=== PATIENT | male | born 1960 | race African-American/Black ===

== ENCOUNTER 2023-03-25 19:55 | Inpatient (IN) | payer OTHER ==
[~2023-03-25] VITALS: Ht 185.4 cm; Wt 99.5 kg
[2023-03-25 20:34] LABS: Hematocrit 36.7 % (41.0-53.0); White Blood Cell 4.3 10^3/uL (4.4-10.8)
[2023-03-25 20:35] VITALS: PULSE 63; RESP 24; O2SAT 98
[2023-03-25 20:37] LABS: Hemoglobin 12.5 g/dL (13.5-17.5); Mean Corpuscular Hemoglobin 34.2 pg (28.0-32.0); Mean Corpuscular Volume 100.5 fL (80.0-100.0); Red Blood Cells 3.65 10^6/uL (4.5-5.90); Red Cell Distribution Width 14.3 % (11.8-14.3)
[2023-03-25] MEDS: IPRATROPIUM BROM 0.5 MG/2.5ML INH SOL NEB ONE (20:41)
[2023-03-25] MEDS: ALBUTEROL SULF 2.5 MG/0.5ML(0.5%) NEB SOLN NEB ONE (20:41)
[2023-03-25] MEDS: methylPREDNISolone SOD SUCC 125 MG/2 ML VL IV ONE (20:42)
[2023-03-25 20:55] LABS: Band Neutrophils % (manual) 0; Basophils % (manual) 0 (0.0-2.0); Blast Cells 0; Metamyelocytes % 0; Myelocytes % 0; Promyelocytes % 0; Reactive Lymphocytes 0
[2023-03-25 21:00] LABS: Chloride 96 mmol/L (98-107); Sodium 135 mmol/L (136-145)
[2023-03-25 21:01] LABS: Anion Gap 7 (5-15); Carbon Dioxide 32 mmol/L (20-30)
[2023-03-25 21:02] LABS: Calcium 9.4 mg/dL (8.5-10.1)
[2023-03-25 21:06] LABS: Glucose 116 mg/dL (74-106)
[2023-03-25 21:07] LABS: BUN/Creatinine Ratio 3.4 (10.0-20.0); Blood Urea Nitrogen 26 mg/dL (9-23)
[2023-03-25 21:14] LABS: Eosinophils % (manual) 17 (0-7); Lymphocytes % (manual) 26 (10.0-50.0); Monocytes % (manual) 7 (0-12)
[2023-03-25 21:15] LABS: Anisocytosis Slight; Macrocytosis Slight; Platelet Estimate Adequate
[2023-03-25] MEDS: AZITHROMYCIN 250 MG TAB PO ONE (21:45)
[2023-03-25] MEDS: cefTRIAXone 1GM/50ML D5W 50 ML IV ONE (21:45)
[2023-03-25] MEDS: ASPirin 325 MG TAB PO ONE (21:45)
[2023-03-25] MEDS ORDERED: NITROGLYCERIN 0.4 MG SL TAB SL PRN (23:15)
[2023-03-25] MEDS ORDERED: ACETAMINOPHEN 325 MG TAB PO PRN (23:15)
[2023-03-25] MEDS: PROMETHAZINE W/CODEINE 5 ML ORAL SYRUP PO PRN (23:40)
[2023-03-25] MEDS: ONDANSETRON HCL 4 MG/2 ML VIAL IV PRN (23:41)
[2023-03-25] MEDS: MORPHINE SULFATE INJ 2 MG/ml SYRG IV PRN (23:41)
[2023-03-25 23:50] VITALS: BP 116/78; PULSE 67; RESP 24; TEMP 97.4; O2SAT 98
[2023-03-26 00:03] LABS: COVID19 ANTIGEN SOFIA FIA NEGATIVE (NEGATIVE)
[2023-03-26 06:25] VITALS: O2SAT 98
[2023-03-26 06:27] VITALS: O2SAT 100
[2023-03-26 06:35] LABS: Basophils # (auto) 0 10 ^3/uL (0-0.2); Basophils % (auto) 0.5 % (0.0-2.0); Eosinophils # (auto) 0.1 10 ^3/uL (0-0.8); Eosinophils % (auto) 1.8 % (0.0-7.0); Hematocrit 35.9 % (41.0-53.0); Lymphocytes # (auto) 0.6 10 ^3/uL (0.4-5.4); Lymphocytes % (auto) 17.9 % (10.0-50.0); Mean Corpuscular Hemoglobin 33.9 pg (28.0-32.0); Mean Corpuscular Hgb Conc. 33.4 g/dL (32.0-36.0); Mean Corpuscular Volume 101.5 fL (80.0-100.0); Monocytes # (auto) 0 10 ^3/uL (0-1.3); Monocytes % (auto) 0.8 % (0.0-12.0); Neutrophils # (auto) 2.7 10 ^3/uL (1.6-8.6); Nucleated Red Blood Cells % 0.1 %; Red Blood Cells 3.54 10^6/uL (4.5-5.90); Red Cell Distribution Width 14.7 % (11.8-14.3); White Blood Cell 3.4 10^3/uL (4.4-10.8)
[2023-03-26 06:50] LABS: Alanine Aminotransferase 17 U/L (7-40); Alkaline Phosphatase 107 U/L (46-116); Anion Gap 8 (5-15); Aspartate Aminotransferase 18 U/L (13-40); BUN/Creatinine Ratio 3.8 (10.0-20.0); Blood Urea Nitrogen 32 mg/dL (9-23); Calcium 9.4 mg/dL (8.5-10.1); Carbon Dioxide 32 mmol/L (20-30); Chloride 95 mmol/L (98-107); Glucose 121 mg/dL (74-106); Potassium 4.7 mmol/L (3.5-5.1); Sodium 135 mmol/L (136-145)
[2023-03-26 06:51] LABS: Albumin 4.3 g/dL (3.2-4.8); Bilirubin, Total 0.4 mg/dL (0.2-1.0); Total Protein 6.7 g/dL (5.7-8.2)
[2023-03-26 07:40] VITALS: PULSE 60; RESP 15; O2SAT 99
[2023-03-26] MEDS: GABAPENTIN 300 MG CAP PO SCH (09:45)
[2023-03-26] MEDS: FUROSEMIDE 40 MG TAB PO SCH (09:46)
[2023-03-26] MEDS: CARVEDILOL 12.5 MG TAB PO SCH (09:46)
[2023-03-26] MEDS: ASPirin 81 mg TAB PO SCH (09:47)
[2023-03-26] MEDS: APIXABAN 5 MG TAB PO SCH (09:47)
[2023-03-26 11:21] LABS: Base Excess 1.7 mmol/L (-2.0-2.0)
[2023-03-26] MEDS: MORPHINE SULFATE INJ 2 MG/ml SYRG IV PRN (15:44)
[2023-03-26 16:37] LABS: Rapid Influenza A Negative (Negative); Rapid Influenza B Negative (Negative)
[2023-03-26 17:50] VITALS: O2SAT 98
[2023-03-26] MEDS: TAMSULOSIN HYDROCHLORIDE 0.4 MG CAP PO SCH (18:31)
[2023-03-26 19:45] VITALS: PULSE 64; RESP 16; O2SAT 98
[2023-03-26] MEDS: cefTRIAXone 1GM/50ML D5W 50 ML IV SCH (22:15)
[2023-03-26] MEDS: methylPREDNISolone SOD SUCC 40 MG/ML VL IV SCH (22:15)
[2023-03-26] MEDS: DOXYCYCLINE 100 MG TAB/CAP PO SCH (22:18)
[2023-03-26] MEDS: CARVEDILOL 3.125 MG TAB PO SCH (22:18)
[2023-03-26] MEDS: AMIODARONE HCL 200 MG TAB PO SCH (22:19)
[2023-03-26] MEDS: ATORVASTATIN 20 MG TAB PO SCH (22:20)
[2023-03-26] MEDS ORDERED: AZITHROMYCIN 500MG/ 250ML 250 ML IV SCH (23:00)
[2023-03-26] MEDS ORDERED: LIDOCAINE HCL 5 % TOP OINT 35 GM TOP PRN (23:45)
[2023-03-27] VITALS (10 sets, daily range): BP systolic 121–165; BP diastolic 68–78; PULSE 55–66; RESP 16–24; TEMP 97.5–98.2; O2SAT 94–100
[2023-03-27] MEDS ORDERED: HYDR-4072 PO (01:09)
[2023-03-27] MEDS ORDERED: ALBU108A5 PO (01:09)
[2023-03-27] MEDS ORDERED: PANT40PA (01:09)
[2023-03-27] MEDS ORDERED: CARV25TA55 PO (01:09)
[2023-03-27] MEDS ORDERED: AMIO100T3 PO (01:09)
[2023-03-27] MEDS ORDERED: APIX5TAB PO (01:09)
[2023-03-27] MEDS ORDERED: TAMS0.4C36 PO (01:09)
[2023-03-27] MEDS ORDERED: GABA-1250 PO (01:09)
[2023-03-27] MEDS ORDERED: LORA-1105 PO (01:09)
[2023-03-27 06:47] LABS: Basophils # (auto) 0 10 ^3/uL (0-0.2); Basophils % (auto) 0.1 % (0.0-2.0); Eosinophils # (auto) 0 10 ^3/uL (0-0.8); Lymphocytes # (auto) 0.5 10 ^3/uL (0.4-5.4); Monocytes # (auto) 0.1 10 ^3/uL (0-1.3); Nucleated Red Blood Cells % 0.1 %
[2023-03-27 06:49] LABS: Eosinophils % (auto) 0.2 % (0.0-7.0); Hematocrit 32.2 % (41.0-53.0); Hemoglobin 11.2 g/dL (13.5-17.5); Mean Corpuscular Hemoglobin 34.9 pg (28.0-32.0); Mean Corpuscular Hgb Conc. 34.8 g/dL (32.0-36.0); Mean Corpuscular Volume 100.3 fL (80.0-100.0); Monocytes % (auto) 2.5 % (0.0-12.0); Neutrophils # (auto) 4.3 10 ^3/uL (1.6-8.6); Neutrophils % (auto) 87.2 % (37.0-80.0); Red Blood Cells 3.21 10^6/uL (4.5-5.90); Red Cell Distribution Width 14.7 % (11.8-14.3); White Blood Cell 4.9 10^3/uL (4.4-10.8)
[2023-03-27 06:58] LABS: Alanine Aminotransferase 15 U/L (7-40); Alkaline Phosphatase 92 U/L (46-116); Anion Gap 10 (5-15); BUN/Creatinine Ratio 6.4 (10.0-20.0); Calcium 8.7 mg/dL (8.7-10.4); Carbon Dioxide 29 mmol/L (20-30); Chloride 94 mmol/L (98-107); Glucose 172 mg/dL (74-106); Magnesium 2.1 mg/dL (1.6-2.6); Potassium 5.2 mmol/L (3.5-5.1); Sodium 133 mmol/L (136-145)
[2023-03-27 06:59] LABS: Albumin 3.9 g/dL (3.2-4.8); Aspartate Aminotransferase < 8 U/L (13-40)
[2023-03-27 07:00] LABS: Bilirubin, Total 0.2 mg/dL (0.2-1.0); Total Protein 5.8 g/dL (5.7-8.2)
[2023-03-27] MEDS ORDERED: SODIUM CHL 0.9% 1000 ML BAG XX ONE (07:00)
[2023-03-27 07:03] LABS: Blood Urea Nitrogen 64 mg/dL (9-23)
[2023-03-27] MEDS: ASPirin 81 mg TAB PO SCH (08:50)
[2023-03-27] MEDS: hydrALAZINE HCL 20 MG/ML VL IV PRN (12:59)
[2023-03-28] VITALS (7 sets, daily range): BP systolic 111–138; BP diastolic 71–74; PULSE 60–89; RESP 16–18; TEMP 97.8–98.3; O2SAT 93–100
[2023-03-28 05:46] LABS: Basophils # (auto) 0 10 ^3/uL (0-0.2); Basophils % (auto) 0.1 % (0.0-2.0); Eosinophils # (auto) 0 10 ^3/uL (0-0.8); Eosinophils % (auto) 0.1 % (0.0-7.0); Lymphocytes # (auto) 0.4 10 ^3/uL (0.4-5.4); Lymphocytes % (auto) 6.6 % (10.0-50.0); Monocytes # (auto) 0.2 10 ^3/uL (0-1.3); Neutrophils # (auto) 5.6 10 ^3/uL (1.6-8.6); Neutrophils % (auto) 90.2 % (37.0-80.0); Nucleated Red Blood Cells % 0.1 %; White Blood Cell 6.2 10^3/uL (4.4-10.8)
[2023-03-28 05:50] LABS: Hemoglobin 11.6 g/dL (13.5-17.5); Mean Corpuscular Hemoglobin 34.3 pg (28.0-32.0); Mean Corpuscular Hgb Conc. 33.1 g/dL (32.0-36.0); Mean Corpuscular Volume 103.8 fL (80.0-100.0); Red Blood Cells 3.37 10^6/uL (4.5-5.90); Red Cell Distribution Width 14.6 % (11.8-14.3)
[2023-03-28 06:03] LABS: Alanine Aminotransferase 14 U/L (7-40); Albumin 4.1 g/dL (3.2-4.8); Alkaline Phosphatase 90 U/L (46-116); Anion Gap 6 (5-15); Aspartate Aminotransferase 11 U/L (13-40); BUN/Creatinine Ratio 4.5 (10.0-20.0); Blood Urea Nitrogen 36 mg/dL (9-23); Carbon Dioxide 31 mmol/L (20-30); Chloride 98 mmol/L (98-107); Glucose 170 mg/dL (74-106); Sodium 135 mmol/L (136-145)
[2023-03-28 06:04] LABS: Bilirubin, Total 0.3 mg/dL (0.2-1.0); Total Protein 6.2 g/dL (5.7-8.2)
[2023-03-28] MEDS: ALBUTEROL SULF 2.5 MG/0.5ML(0.5%) NEB SOLN NEB PRN (07:58)
[2023-03-28] MEDS: IPRATROPIUM BROM 0.5 MG/2.5ML INH SOL NEB PRN (07:59)
[2023-03-28] MEDS ORDERED: DOXY1CAP57 PO (14:50)
[2023-03-28] MEDS ORDERED: PRED20TA2 PO ×2 (14:50→16:09)
[2023-03-28] MEDS ORDERED: DEXT1SYP9 PO (15:39)
[2023-03-28] MEDS ORDERED: DOXY-448 PO (16:09)
[2023-03-31 09:14] LABS: Hepatitis B Surface Antibody Negative (Negative)
[2023-03-31 09:26] LABS: Hepatitis B Surface Antigen Negative (Negative)
== END 2023-03-28 18:00 | disposition home or self-care (01) | DRG 177 ==
LOC: ER 19:55 → EDBD 19:55 → TELE 23:21 → TELE-EAST 03-26 23:24
PROVIDERS: ADMIT Internal Medicine Pulmonary Disease; ATTEND Internal Medicine Pulmonary Disease
PROC: 5A1D70Z Performance of Urinary Filtration, Intermittent, Less than 6 Hours Per Day (ICD-10-PCS; principal; 2023-03-27)
DX: J15.69 Pneumonia due to other Gram-negative bacteria (principal); I21.A1 Myocardial infarction type 2; I50.33 Acute on chronic diastolic (congestive) heart failure; J96.21 Acute and chronic respiratory failure with hypoxia; N18.6 End stage renal disease; J44.1 Chronic obstructive pulmonary disease with (acute) exacerbation; I13.2 Hypertensive heart and chronic kidney disease with heart failure and with stage 5 chronic kidney disease, or end stage renal disease; N25.81 Secondary hyperparathyroidism of renal origin; J44.0 Chronic obstructive pulmonary disease with (acute) lower respiratory infection; J15.9 Unspecified bacterial pneumonia; I48.91 Unspecified atrial fibrillation; E11.22 Type 2 diabetes mellitus with diabetic chronic kidney disease; D53.9 Nutritional anemia, unspecified; E55.9 Vitamin D deficiency, unspecified; F17.200 Nicotine dependence, unspecified, uncomplicated; Z20.822 Contact with and (suspected) exposure to COVID-19; E78.5 Hyperlipidemia, unspecified; F41.9 Anxiety disorder, unspecified; E87.5 Hyperkalemia; Z95.810 Presence of automatic (implantable) cardiac defibrillator; Z79.01 Long term (current) use of anticoagulants; Z99.2 Dependence on renal dialysis; Z79.899 Other long term (current) drug therapy; Z82.49 Family history of ischemic heart disease and other diseases of the circulatory system
CPT/HCPCS: 36415; 71045; 76775; 80048; 80053; 82306; 83605; 83735; 83880; 83970; 84100; 84443; 84484; 85007; 85025; 85027; 86706; 86803; 87340; 87426; 87804; 90935; 93005; 93306; 94640; 99291; G0378; J2405

== ENCOUNTER 2024-01-25 21:17 | Inpatient (IN) | payer OTHER ==
[~2024-01-25] VITALS: Ht 188 cm; Wt 93.7 kg
[~2024-01-25 21:17] MED LIST: ALBU108A5 PO; AMIO100T3 PO; APIX5TAB PO; CARV25TA55 PO; DEXT1SYP9 PO; DOXY100C79 PO; DOXY1CAP57 PO; GABA-1250 PO; HYDR-4072 PO; LORA-1105 PO; PANT40PA; PRED20TA2 PO; TAMS0.4C39 PO
[2024-01-25 21:51] VITALS: PULSE 131; RESP 36; O2SAT 96
[2024-01-25 22:11] LABS: Base Excess -5.6 mmol/L (-2.0-3.0)
[2024-01-25 22:24] LABS: Basophils # (auto) 0 10 ^3/uL (0-0.2); Basophils % (auto) 0.1 % (0.0-2.0); Eosinophils # (auto) 0 10 ^3/uL (0-0.8); Hemoglobin 12.1 g/dL (13.5-17.5); Lymphocytes # (auto) 0.2 10 ^3/uL (0.4-5.4); Lymphocytes % (auto) 5.2 % (10.0-50.0); Mean Corpuscular Hemoglobin 33.6 pg (28.0-32.0); Mean Corpuscular Hgb Conc. 33.6 g/dL (32.0-36.0); Monocytes # (auto) 0.1 10 ^3/uL (0-1.3); Monocytes % (auto) 3.7 % (0.0-12.0); Neutrophils # (auto) 3.4 10 ^3/uL (1.6-8.6); Nucleated Red Blood Cells % 0.1 %; Platelet Count (auto) 121 10^3/uL (140-450); Red Cell Distribution Width 15.2 % (11.8-14.3); White Blood Cell 3.7 10^3/uL (4.4-10.8)
[2024-01-25 22:41] LABS: Alanine Aminotransferase 27 U/L (7-40); Albumin 4.4 g/dL (3.2-4.8); Alkaline Phosphatase 111 U/L (46-116); Anion Gap 20 (5-15); Calcium 9.6 mg/dL (8.7-10.4); Carbon Dioxide 22 mmol/L (20-31); Magnesium 2.1 mg/dL (1.6-2.6); Potassium 4.7 mmol/L (3.5-5.1); Total Protein 6.3 g/dL (5.7-8.2)
[2024-01-25 22:55] LABS: Aspartate Aminotransferase 41 U/L (13-40); Blood Urea Nitrogen 65 mg/dL (9-23); Chloride 86 mmol/L (98-107); Glucose 173 mg/dL (74-106); Sodium 128 mmol/L (136-145)
--- NOTE | 2024-01-25 23:36 | DVH ---
EXAM: XY CHEST PORTABLE CLINICAL HISTORY: SOB/CP TECHNIQUE: Single AP view of the chest WID: COMPARISON: XY CHEST PORTABLE on DOS: 03/25/23 FINDINGS: Lines and tubes: There is a left-sided dual lead AICD / pacemaker in place. Chest: Cardiomegaly with pulmonary vascular congestion. Small right pleural effusion with bibasilar opacities. No pneumothorax The osseous structures are grossly intact. IMPRESSION: 1. Cardiomegaly and pulmonary vascular congestion. 2. Small right pleural effusion with bibasilar opacities which could reflect atelectasis or pneumonia .
--- NOTE | 2024-01-25 23:50 | ED.PDOC ---
History of Present Illness HPI Comments 63M with HTN, HLD, CAD, COPD, ESRD on HD M/W/Fr Last was two days ago presents with one day of worsening shortness of breath and dyspnea on exertion. EMS arrived and found patient to be satting mid 60s and was very tachypnic. They gave him nebs and put him on a nonrebreather but were unable to get his oxygen s aturation above 86 percent. He reports having a nonproductive cough. he denies fevers, chills, nausea, vomiting, diarrhea. Chief Complaint: Shortness of Breath Time Seen by MD: 22:00 Reviewed Notes: Nurses Notes, Full Roll Inspector Notes Allergies: Coded Allergies: NO KNOWN ALLERGIES (Unverified , 03/25/23) Home Meds Active Scripts Prednisone (Prednisone) 20 Mg Tab, 20 MG PO BID for 5 Days, #10 TAB Prov:DORA STEVENSON MD 03/28/23 Doxycycline (Monohydrate) (Doxycycline) 100 Mg Cap, 100 MG PO BID for 5 Days, #1 0 CAP Prov:DORA STEVENSON MD 03/28/23 Prednisone (Prednisone) 20 Mg Tab, 20 MG PO BID for 5 Days, #10 MG Prov:KLAUS FOLEY RESIDENT 03/28/23 Doxycycline Monohydrate (Doxycycline Monohydrate) 100 Mg Cap, 100 MG PO BID for 5 Days, #10 CAP Prov:KLAUS FOLEY RESIDENT 03/28/23 Dextromethorphan-Guaifenesin (Robitussin-Dm) 10 Ml Sr, 10 ML PO TID for 7 Days, #60 SYP Prov:KLAUS FOLEY RESIDENT 03/28/23 Prednisone (Prednisone) 20 Mg Tab, 20 MG PO BID for 5 Days, #10 MG Prov:KLAUS FOLEY RESIDENT 03/28/23 Doxycycline Monohydrate (Doxycycline Monohydrate) 100 Mg Cap, 100 MG PO BID for 5 Days, #10 CAP Prov:KLAUS FOLEY RESIDENT 03/28/23 Reported Medications Hydrocodone-Acetaminophen (Hydrocodone/Acetaminophen 10-325 mg) 1 Tab Tab, 1 TAB PO QID PRN for PAIN SCALE 7 THRU 10 03/27/23 Tamsulosin Hcl (Tamsulosin Hcl) 0.4 Mg Cap, 1 CAP PO DAILY 03/27/23 Albuterol Sulfate (Albuterol Sulfate Hfa) 108 Mcg/Act Aer, 2 PUFF PO PRN for SHORTNESS OF BREATH 03/27/23 Pantoprazole Sodium (Pantoprazole Sodium) 40 Mg Wei 03/27/23 Lorazepam (Lorazepam) 2 Mg Tab, 1 TAB PO 03/27/23 Gabapentin (Gabapentin) 300 Mg Cap, 1 CAP PO BID 03/27/23 Apixaban Base (ELIQUIS) 5 Mg Tab, 1 TAB PO BID 03/27/23 Carvedilol (Carvedilol) 25 Mg Tab, 1 TAB PO BID 03/27/23 Amiodarone Hcl (AMIODARONE HCL) 100 Mg Tab, 2 TAB PO DAILY 03/27/23 Information Source: Patient, Emergency Med Personnel Mode of Arrival: EMS Past Medical History PAST MEDICAL HISTORY: CHF, COPD, HTN Surgical History: Pacemaker Family History Family History: Reviewed,noncontributory to illness Social History Smoker: Non-Smoker Alcohol: Denies ETOH Use Drugs: Denies Drug Use Lives In: Home Respiratory: reports: shortness of breath, wheezing All Other Systems: Reviewed and Negative Physical Exam General Appearance: Moderate Distress HEENT: Normal ENT Inspection, Pharynx Normal, TMs Normal Neck: Full Range of Motion, Non-Tender, Normal, Normal Inspection Respiratory: Rales, Respiratory Distress, Wheezing Cardiovascular: Tachycardia Breast Exam: Deferred Gastrointestinal: No Organomegaly, Non Tender, No Pulsatile Mass, Normal Bowel Sounds, Soft Genitalia: Deferred Pelvic: Deferred Rectal: Deferred Extremities: No calf tenderness, Normal capillary refill, Normal inspection, Normal range of motion, Non-tender, No pedal edema Neurologic: No Motor Deficits Cerebellar Function: NOT DONE Reflexes: NOT DONE Skin: Dry, Normal Color, Warm Lymphatic: No Adenopathy Was a procedure done? Was a procedure done?: No Differential Dx Considerations may include: Volume overload, COPD exacerbation, acs, electrolyte abnormality X-Ray, Labs, Meds, VS Vital Signs Date Time Temp Pulse Resp B/P (MAP) Pulse Ox O2 Delivery O2 Flow Rate FiO2 01/25/24 21:42 131 123/72 Facial BiPAP Mask 100 01/25/24 21:29 97.7 98 28 128/71 (90) 60 Lab Test 01/25/24 23:18 01/25/24 22:08 01/25/24 21:47 Range/Units Troponin I High Sensitivity Pending 3247 *H </=54 ng/L White Blood Count 3.7 L 4.4-10.8 10^3/uL Red Blood Count 3.60 L 4.5-5.90 10^6/uL Hemoglobin 12.1 L 13.5-17.5 g/dL Hematocrit 36.0 L 41.0-53.0 % Mean Corpuscular Volume 100.0 80.0-100.0 fL Mean Corpuscular Hemoglobin 33.6 H 28.0-32.0 pg Mean Corpuscular Hemoglobin Concent 33.6 32.0-36.0 g/dL Red Cell Distribution Width 15.2 H 11.8-14.3 % Platelet Count 121 L 140-450 10^3/uL Mean Platelet Volume 7.9 6.9-10.8 fL Neutrophils (%) (Auto) 91.0 H 37.0-80.0 % Lymphocytes (%) (Auto) 5.2 L 10.0-50.0 % Monocytes (%) (Auto) 3.7 0.0-12.0 % Eosinophils (%) (Auto) 0.0 0.0-7.0 % Basophils (%) (Auto) 0.1 0.0-2.0 % Neutrophils # (Auto) 3.4 1.6-8.6 10 ^3/uL Lymphocytes # (Auto) 0.2 L 0.4-5.4 10 ^3/uL Monocytes # (Auto) 0.1 0-1.3 10 ^3/uL Eosinophils # (Auto) 0 0-0.8 10 ^3/uL Basophils # (Auto) 0 0-0.2 10 ^3/uL Nucleated Red Blood Cells 0.1 % Sodium Level 128 L 136-145 mmol/L Potassium Level 4.7 3.5-5.1 mmol/L Chloride Level 86 L 98-107 mmol/L Carbon Dioxide Level 22 20-31 mmol/L Anion Gap 20 H 5-15 Blood Urea Nitrogen 65 H 9-23 mg/dL Creatinine 10.82 *H 0.700-1.30 mg/dL Glomerular Filtration Rate Calc 5 >90 mL/min BUN/Creatinine Ratio 6.0 L 10.0-20.0 Serum Glucose 173 H 74-106 mg/dL Calcium Level 9.6 8.7-10.4 mg/dL Magnesium Level 2.1 1.6-2.6 mg/dL Total Bilirubin 1.0 0.2-1.0 mg/dL Aspartate Amino Transferase (AST) 41 H 13-40 U/L Alanine Aminotransferase (ALT) 27 7-40 U/L Alkaline Phosphatase 111 46-116 U/L B-Type Natriuretic Peptide > 5000.00 0-100 pg/mL Total Protein 6.3 5.7-8.2 g/dL Albumin 4.4 3.2-4.8 g/dL Blood Gas Specimen Type Arterial Blood Gas Sample Site Left brachial Blood Gas Patient Temperature 37.0 Arterial Blood Date Drawn Arterial Blood pH 7.301 L 7.350-7.450 Arterial Blood Partial Pressure CO2 42.5 35.0-48.0 mmHg Arterial Blood Partial Pressure O2 130.3 H 83.0-108.0 mmHg Arterial Blood HCO3 20.5 L 21.0-28.0 mmol/L Arterial Blood Oxygen Saturation 96.7 94.0-98.0 % Arterial Blood Base Excess -5.6 L -2.0-3.0 mmol/L Arterial Blood Oxyhemoglobin 94.6 94.0-98.0 % Arterial Blood Carboxyhemoglobin 1.9 H 0.5-1.5 % Arterial Blood Methemoglobin 0.3 0.0-1.5 % Lexa Test N/a Blood Gas Total Hemoglobin 11.90 L 13.5-17.5 g/dL Blood Gas Set Respiration Rate 12.0 Blood Gas Modality Mask - bipap Blood Gas Spontaneous Rate 37 FiO2 % 100.0 Blood Gas Spontaneous Tidal Volume 611 Blood Gas EPAP 5 Blood Gas IPAP 12 Time of 1ST Reevaluation: 23:46 Reevaluation 1ST: Improved Patient Education/Counseling: Diagnosis, Treatment Family Education/Counseling: Diagnosis, Treatment Departure 1 Departure Time of Disposition: 23:46 (Patient presenting respiratory distress. Patient was emergently placed on BiPAP. Patient improved significantly.Patient presented with acute shortness of breath concerning for acute on chronic COPD Exacerbation, Pneumonia, ACS, CHF, Pneumothorax. Less likely PE, Dissection. Data: 1. I ordered and reviewed the result of at least 3 labs including a CBC, BMP, and Troponin. 2. I independently interpreted the following tests: Chest X- ray shows vascular congestion .Risk:This patient has a high risk of morbidity due to further diagnostic testing or treatment and may suffer from respiratory or cardiac etiology . Workup reveals a likely COPD Exacerbation combined with CHF exacerbation and patient should be admitted for further workup. and possible expert consultation.) Impression: Primary Impression: Acute on chronic systolic (congestive) heart failure Additional Impressions: Acute exacerbation of chronic obstructive pulmonary disease (COPD) Volume overload Qualified Codes: E87.70 - Fluid overload, unspecified ESRD (end stage renal disease) on dialysis Disposition: ADMITTED INPATIENT Admit to: [facility] Condition: Guarded Critical Care Note Critical Care Time?: Yes Critical care comment: Acute respiratory Authorized and Performed by: Mauricio Conrad MD Total critical care time: Approximately 42 minutes Due to a high probability of clinically significant, life threatening deterioration, the patient required my highest level of preparedness to intervene emergently and I personally spent this critical care time directly and personally managing the patient. This critical care time included obtaining a h istory; examining the patient; pulse oximetry; ordering and review of studies; arranging urgent treatment with development of a management plan; evaluation of patient's response to treatment; frequent reassessment; and, discussions with other providers. This critical care time was performed to assess and manage the high probability of imminent, life-threatening deterioration that could result in multi-organ failure. It was exclusive of separately billable procedures and treating other patients and teaching time. Please see my other sections and the rest of the note for further information on patient assessment and treatment. Stability Stability form required: No Heart Score Heart Score: Heart Score Response (Comments) Value History Slightly Suspicious [address]-Deviation 2 Age 45-64 1 Risk Factors >3 or Hx ASHD 2 Troponin >3 x's Normal limit 2 Total 7 MAURICIO CONRAD MD Jan 25, 2024 23:50
[2024-01-26] VITALS (56 sets, daily range): BP systolic 68–234; BP diastolic 42–156; PULSE 81–156; RESP 15–34; TEMP 36.7; O2SAT 0–100
[2024-01-26] MEDS ORDERED: DOCUSATE SOD 100 MG CAP PO PRN (00:45)
[2024-01-26] MEDS ORDERED: MORPHINE SULFATE INJ 2 MG/ml SYRG IV PRN ×2 (00:45)
[2024-01-26] MEDS ORDERED: NITROGLYCERIN 0.4 MG SL TAB SL PRN (00:45)
[2024-01-26] MEDS ORDERED: ACETAMINOPHEN 325 MG TAB PO PRN (00:45)
--- NOTE | 2024-01-26 01:25 | DVHHPRES ---
History of Present Illness Resident Creating Document: VICKY BUCIO RESIDENT History of Present Illness Patient is 63-year-old male with past medical history of ESRD on HD Friday/Friday/Friday,HFpEF, COPD, A-Fib, HTN, AICD was brought to the ER by EMS due to shortness of breaths. As per patient his fiancee patient was feeling short of breath for last 3 days which got worse on 01/25/2024. Patient reported that he was feeling short of breath even at rest, endorsed orthopnea and PND. Patient's reported that he was wheezing 2 days before, nebulization treatment did not help him. When the EMS arrived patient was desaturating to 60 and patient was tachypneic. Patient also complained of some cough with yellowish mucus for last couple of days. Patient denied any chest pain, fever, constipation or diarrhea, acute joint pain or swelling, dysarthria or change in vision. Initial EKG revealed sinus tachycardia with suspected LBBB. Initial lab workup revealed elevated troponin I 3247> 3420, BNP>, elevated serum creatinine 10.82, elevated BUN 65, leukopenia WBC is 3.7, thrombocytopenia platelet 121, hyponatremia sodium 128, anion gap 20. Seven revealed bilateral pulmonary congestion, cardiomegaly with suspected pericardial effusion, suspected right-sided pleural effusion with some opacity. ABG revealed--PH 7.3, PCO2 42.5, bicarbonate 20.5. Patient was recently discharged [facility] on [facility]23 with the diagnosis of acute on chronic hypoxic respiratory failure and acute on chronic diastolic heart failure. Echo on 03/26/2023 revealed-Normal left ventricular size and dimension. Normal left ventricular systolic function with estimated ejection fraction of 50%. There is a grade 1 diastolic dysfunction. Past Medical History ESRD on HD Friday/Friday/Friday,HFpEF, COPD, HTN Past Surgical History Cholecystectomy, fistula for hemodialysis, AICD, in place Past Social History Patient lives with son at home, occasional alcoholic, smoker, use weed Review of Systems Review of Systems Allergy- NKDA Patient was seen today at the bedside. Cardiovascular- deny acute chest pain or or palpitation Gastrointestinal- denies any rectal bleeding, nausea or vomiting Musculoskeletal-denies acute joint swelling or tenderness or redness Neurological- denies acute dysarthria, dysphagia, change in vision Psychiatry- denies depression or SI or HI Skin- denies acute rash or purpura Allergies: Coded Allergies: NO KNOWN ALLERGIES (Unverified , 03/25/23) Medications Current Medications Medications Dose Ordered Sig/Estelle Route Start Time Stop Time Status Last Admin Dose Admin Docusate Sodium 100 mg BIDPRN PRN PO 01/26/24 00:45 Acetaminophen 650 mg Q6HP PRN PO 01/26/24 00:45 Morphine Sulfate 2 mg Q4HPRN PRN IV 01/26/24 00:45 Nitroglycerin 0.4 mg Q5MINP PRN SL 01/26/24 00:45 Morphine Sulfate 2 mg Q30M PRN IV 01/26/24 00:45 Exam Vital Signs Vital Signs Date Time Temp Pulse Resp B/P (MAP) Pulse Ox O2 Delivery O2 Flow Rate FiO2 01/26/24 00:12 105 148/84 Facial BiPAP Mask 100 01/25/24 21:29 97.7 28 60 Exam General examination- awake, alert, oriented, patient on BiPAP HEENT- PEERLA, no acute nasal discharge Cardiovascular- S1-S2 audible, rate and rhythm regular, no murmur Respiratory- bilateral lung crackles++ Gastrointestinal-nontender, bowel sound+. Nondistended Musculoskeletal-no acute joint swelling or tenderness or redness# Lower extremity- no leg edema Neurological- cranial nerves intact, no acute dysarthria or dysphagia Psychiatry- denies depression or SI or HI Skin- no acute rash or purpura Labs/Xrays Labs Test 01/25/24 23:18 01/25/24 22:08 01/25/24 21:47 Range/Units Troponin I High Sensitivity 3420 *H </=54 ng/L White Blood Count 3.7 L 4.4-10.8 10^3/uL Red Blood Count 3.60 L 4.5-5.90 10^6/uL Hemoglobin 12.1 L 13.5-17.5 g/dL Hematocrit 36.0 L 41.0-53.0 % Mean Corpuscular Volume 100.0 80.0-100.0 fL Mean Corpuscular Hemoglobin 33.6 H 28.0-32.0 pg Mean Corpuscular Hemoglobin Concent 33.6 32.0-36.0 g/dL Red Cell Distribution Width 15.2 H 11.8-14.3 % Platelet Count 121 L 140-450 10^3/uL Mean Platelet Volume 7.9 6.9-10.8 fL Neutrophils (%) (Auto) 91.0 H 37.0-80.0 % Lymphocytes (%) (Auto) 5.2 L 10.0-50.0 % Monocytes (%) (Auto) 3.7 0.0-12.0 % Eosinophils (%) (Auto) 0.0 0.0-7.0 % Basophils (%) (Auto) 0.1 0.0-2.0 % Neutrophils # (Auto) 3.4 1.6-8.6 10 ^3/uL Lymphocytes # (Auto) 0.2 L 0.4-5.4 10 ^3/uL Monocytes # (Auto) 0.1 0-1.3 10 ^3/uL Eosinophils # (Auto) 0 0-0.8 10 ^3/uL Basophils # (Auto) 0 0-0.2 10 ^3/uL Nucleated Red Blood Cells 0.1 % Sodium Level 128 L 136-145 mmol/L Potassium Level 4.7 3.5-5.1 mmol/L Chloride Level 86 L 98-107 mmol/L Carbon Dioxide Level 22 20-31 mmol/L Anion Gap 20 H 5-15 Blood Urea Nitrogen 65 H 9-23 mg/dL Creatinine 10.82 *H 0.700-1.30 mg/dL Glomerular Filtration Rate Calc 5 >90 mL/min BUN/Creatinine Ratio 6.0 L 10.0-20.0 Serum Glucose 173 H 74-106 mg/dL Calcium Level 9.6 8.7-10.4 mg/dL Magnesium Level 2.1 1.6-2.6 mg/dL Total Bilirubin 1.0 0.2-1.0 mg/dL Aspartate Amino Transferase (AST) 41 H 13-40 U/L Alanine Aminotransferase (ALT) 27 7-40 U/L Alkaline Phosphatase 111 46-116 U/L B-Type Natriuretic Peptide > 5000.00 0-100 pg/mL Total Protein 6.3 5.7-8.2 g/dL Albumin 4.4 3.2-4.8 g/dL Blood Gas Specimen Type Arterial Blood Gas Sample Site Left brachial Blood Gas Patient Temperature 37.0 Arterial Blood Date Drawn [id number] Arterial Blood pH 7.301 L 7.350-7.450 Arterial Blood Partial Pressure CO2 42.5 35.0-48.0 mmHg Arterial Blood Partial Pressure O2 130.3 H 83.0-108.0 mmHg Arterial Blood HCO3 20.5 L 21.0-28.0 mmol/L Arterial Blood Oxygen Saturation 96.7 94.0-98.0 % Arterial Blood Base Excess -5.6 L -2.0-3.0 mmol/L Arterial Blood Oxyhemoglobin 94.6 94.0-98.0 % Arterial Blood Carboxyhemoglobin 1.9 H 0.5-1.5 % Arterial Blood Methemoglobin 0.3 0.0-1.5 % Lexa Test N/a Blood Gas Total Hemoglobin 11.90 L 13.5-17.5 g/dL Blood Gas Set Respiration Rate 12.0 Blood Gas Modality Mask - bipap Blood Gas Spontaneous Rate 37 FiO2 % 100.0 Blood Gas Spontaneous Tidal Volume 611 Blood Gas EPAP 5 Blood Gas IPAP 12 Assessment/Plan Assessment/Plan # ACS- NSTEMI Type 1 -continue heparin as per protocol -continue aspirin 81 mg p.o. daily -continue atorvastatin 80 mg q.h.s. -pending cardiology consult -pending echo 2D # acute on chronic hypoxic respiratory failure likely due to acute on chronic heart failure/acute exertional COPD -continue nebulization with albuterol and ipratropium bromide as prescribed -continue methylprednisolone 40 mg b.i.d. Continue ceftriaxone 1 g IV daily -continue doxycycline 100 mg IV b.i.d. # acute on chronic heart failure -continue Lasix 40 mg IV b.i.d. -ordered cardiology consult for further evaluation and care # pneumonia Gram-positive versus Gram-negative -continue nebulization with albuterol and ipratropium bromide as prescribed -continue methylprednisolone 40 mg b.i.d -Continue ceftriaxone 1 g IV daily -continue doxycycline 100 mg IV b.i.d. # ESRD on hemodialysis Friday/Friday/Friday -ordered nephrology consult -avoid nephrotoxic drugs and medications # metabolic acidosis likely due to ESRD -continue current management -plan is to do hemodialysis #Hyponatremia, likely dilutional -Na-128 -Monitor CMP # atrial fibrillation-([id number] Score 4 points; HAS BLED 4 points) -status post AICD -continue amiodarone mg p.o. daily # abnormal TSH -TSH 0.24 -pending few T3 and free T4 # BPH -continue Flomax 0.4 mg q.h.s. # hypertension -continue hydralazine 10 mg q.6h p.r.n. -monitor blood pressure Goals of care/advance care planning; FULL CODE; discussed with the patient >15 minutes PUD prophylaxis: Pantoprazole DVT prophylaxis: Heparin Plan discussed with Dr. Braswell, nursing staff, patient Total time spent on patient evaluation, chart review, assessment and plan, discussion discussion >30 minutes Plan discussed with: Patient Plan discussed with: Patient, Other (NATALIIA, SRIDHAR) My Orders Orders - VICKY BUCIO RESIDENT Procedure Category Date Status Time Admit ADMIT 01/26/24 Transmitted 00:43 Code Status CODE 01/26/24 Transmitted 00:43 Renal DIET 01/26/24 Transmitted Standard(2gna,3gk,Lopho) Breakfast Docusate Sodium PHA 01/26/24 In Process Capsule (Colace 00:45 Complete Blood Count LAB 01/27/24 Verified 04:00 Comprehensive LAB 01/27/24 Verified Metabolic Panel 04:00 Cardiac DIET 01/26/24 Transmitted Diet-2gna,Lofat,Lochol Breakfast Echo 2d Mode Cardiac US 01/26/24 Logged DOP 00:43 Acetaminophen Tablet PHA 01/26/24 In Process (Tylenol Tablet) 00:45 Morphine Sulfate PHA 01/26/24 In Process Injection 00:45 Nitroglycerin PHA 01/26/24 In Process Sublingual (Ntrostat 00:45 Morphine Sulfate PHA 01/26/24 In Process Injection 00:45 Oxygen By Nasal RT 01/26/24 Transmitted Cannula 00:43 Stat Ekg For Chest [facility] 01/26/24 In Process Pain 00:43 Notify Md Of Changes [facility] 01/26/24 In Process From Base 00:43 Diagnostic Technologist [address] [facility] 01/26/24 In Process 24 Hours 00:43 [address] [facility] 01/26/24 In Process Protocol 00:43 Rhythm Strips [address] [facility] 01/26/24 In Process Every Shift 00:43 Covid19 Antigen [facility] 01/26/24 Logged Rapid Influenza A&B LAB 01/26/24 Logged 00:49 Thyroid Stimulating LAB 01/26/24 Logged Hormone 00:49 Lactic Acid W/ Reflex LAB 01/26/24 Logged Order 00:49 Prothrombin Time W/ LAB 01/26/24 Logged INR 00:50 Transfer Orders XFER 01/26/24 Verified 01:09 Date of Service: Jan 26, 2024 Billing Provider: RONALD BRASWELL MD Common Visit Codes: 50117-[id number] INP/OBS CARE (HIGH) VICKY BUCIO RESIDENT Jan 26, 2024 01:25 RONALD BRASWELL MD Jan 26, 2024 21:41
[2024-01-26] MEDS ORDERED: ASPirin 81 mg TAB PO ONE ×2 (01:30)
[2024-01-26] MEDS ORDERED: HEPARIN SODIUM (PORCINE) 5000 UNITS/ML 1ML VIAL IV ONE ×2 (01:30)
[2024-01-26] MEDS ORDERED: ATORVASTATIN 20 MG TAB PO ONE (01:30)
[2024-01-26] MEDS: ATORVASTATIN 20 MG TAB PO ONE (01:30)
[2024-01-26] MEDS: HEPARIN SODIUM (PORCINE) 5000 UNITS/ML 1ML VIAL IV ONE ×2 (01:30→18:00)
[2024-01-26] MEDS: FUROSEMIDE 40 MG/4 ML VIAL IV ONE (01:30)
[2024-01-26] MEDS: ASPirin 325 MG TAB PO ONE (01:30)
[2024-01-26] MEDS ORDERED: FUROSEMIDE 40 MG/4 ML VIAL IV ONE (01:30)
[2024-01-26] MEDS ORDERED: HEPARIN DRIP/D5W 100UNITS/ML 250 ML IV SCH ×3 (01:30→18:00)
[2024-01-26] MEDS: ASPirin 81 mg TAB PO ONE (01:30)
[2024-01-26] MEDS ORDERED: ASPirin 325 MG TAB PO ONE (01:30)
[2024-01-26 01:42] LABS: INR 1.09 (0.9-1.15); Prothrombin Time 11.5 sec (9.3-11.8)
[2024-01-26] MEDS: methylPREDNISolone SOD SUCC 40 MG/ML VL IV ONE (01:45)
[2024-01-26] MEDS ORDERED: cefTRIAXone 1GM/50ML D5W 50 ML IV ONE ×2 (01:45→02:00)
[2024-01-26] MEDS: PANTOPRAZOLE 40 MG/10 ML VIAL INJ IV ONE ×3 (01:45→13:52)
[2024-01-26] MEDS ORDERED: hydrALAZINE HCL 20 MG/ML VL IV PRN (01:45)
[2024-01-26] MEDS ORDERED: methylPREDNISolone SOD SUCC 40 MG/ML VL IV ONE (01:45)
[2024-01-26] MEDS ORDERED: ALBUTEROL SULF 2.5 MG/0.5ML(0.5%) NEB SOLN NEB PRN ×2 (01:45→02:00)
[2024-01-26] MEDS ORDERED: cefTRIAXone 2GM/50ML D5W 50 ML IV ONE ×2 (01:45→02:00)
[2024-01-26] MEDS ORDERED: DOXYCYCLINE 100MG/250ML 250 ML IV ONE (01:45)
[2024-01-26] MEDS ORDERED: IPRATROPIUM BROM 0.5 MG/2.5ML INH SOL NEB PRN ×2 (01:45→02:00)
[2024-01-26] MEDS ORDERED: DOXYCYCLINE 100MG/250ML 250 ML IV SCH ×3 (01:45→11:00)
[2024-01-26 01:58] LABS: INR 1.08 (0.9-1.15); Partial Thromboplastin Time 34.2 SEC (24.5-34.5); Prothrombin Time 11.4 sec (9.3-11.8)
[2024-01-26] MEDS: cefTRIAXone 1GM/50ML D5W 50 ML IV ONE (02:13)
[2024-01-26] MEDS: cefTRIAXone 2GM/50ML D5W 50 ML IV ONE (02:43)
[2024-01-26 03:06] LABS: Basophils # (auto) 0 10 ^3/uL (0-0.2); Basophils % (auto) 0.1 % (0.0-2.0); Eosinophils # (auto) 0 10 ^3/uL (0-0.8); Hematocrit 32.1 % (41.0-53.0); Hemoglobin 10.8 g/dL (13.5-17.5); Lymphocytes # (auto) 0.3 10 ^3/uL (0.4-5.4); Lymphocytes % (auto) 6.7 % (10.0-50.0); Mean Corpuscular Hemoglobin 34.1 pg (28.0-32.0); Mean Corpuscular Hgb Conc. 33.8 g/dL (32.0-36.0); Monocytes # (auto) 0.2 10 ^3/uL (0-1.3); Monocytes % (auto) 4.9 % (0.0-12.0); Neutrophils # (auto) 3.5 10 ^3/uL (1.6-8.6); Neutrophils % (auto) 88.3 % (37.0-80.0); Nucleated Red Blood Cells % 0.2 %; Platelet Count (auto) 132 10^3/uL (140-450); Red Blood Cells 3.18 10^6/uL (4.5-5.90); Red Cell Distribution Width 15.4 % (11.8-14.3)
[2024-01-26] MEDS: DOXYCYCLINE 100MG/250ML 250 ML IV ONE ×2 (03:58→04:00)
[2024-01-26 04:23] LABS: COVID19 ANTIGEN SOFIA FIA NEGATIVE (NEGATIVE); Rapid Influenza A Negative (Negative); Rapid Influenza B Negative (Negative)
[2024-01-26] MEDS: HEPARIN DRIP/D5W 100UNITS/ML 250 ML IV SCH ×2 (04:42→18:05)
[2024-01-26 04:45] LABS: Basophils # (auto) 0 10 ^3/uL (0-0.2); Basophils % (auto) 0.1 % (0.0-2.0); Eosinophils # (auto) 0 10 ^3/uL (0-0.8); Lymphocytes # (auto) 0.3 10 ^3/uL (0.4-5.4); Monocytes # (auto) 0.1 10 ^3/uL (0-1.3); Nucleated Red Blood Cells % 0.1 %
[2024-01-26 04:47] LABS: Hematocrit 30.6 % (41.0-53.0); Hemoglobin 10.6 g/dL (13.5-17.5); Lymphocytes % (auto) 7.9 % (10.0-50.0); Mean Corpuscular Hgb Conc. 34.6 g/dL (32.0-36.0); Mean Corpuscular Volume 98.5 fL (80.0-100.0); Monocytes % (auto) 3.2 % (0.0-12.0); Neutrophils # (auto) 3.2 10 ^3/uL (1.6-8.6); Neutrophils % (auto) 88.8 % (37.0-80.0); Platelet Count (auto) 141 10^3/uL (140-450); Red Blood Cells 3.11 10^6/uL (4.5-5.90); Red Cell Distribution Width 14.8 % (11.8-14.3); White Blood Cell 3.6 10^3/uL (4.4-10.8)
[2024-01-26 05:07] LABS: Alanine Aminotransferase 22 U/L (7-40); Alkaline Phosphatase 95 U/L (46-116); Anion Gap 15 (5-15); Aspartate Aminotransferase 29 U/L (13-40); BUN/Creatinine Ratio 5.7 (10.0-20.0); Bilirubin, Total 0.7 mg/dL (0.2-1.0); Calcium 9.7 mg/dL (8.7-10.4); Carbon Dioxide 27 mmol/L (20-31); Magnesium 2.1 mg/dL (1.6-2.6); Potassium 4.6 mmol/L (3.5-5.1); Total Protein 6.5 g/dL (5.7-8.2)
[2024-01-26 05:17] LABS: Sodium 128 mmol/L (136-145)
[2024-01-26 05:18] LABS: Blood Urea Nitrogen 63 mg/dL (9-23); Chloride 86 mmol/L (98-107); Glucose 120 mg/dL (74-106)
[2024-01-26] MEDS: FUROSEMIDE 40 MG/4 ML VIAL IV SCH (06:00)
[2024-01-26] MEDS ORDERED: FUROSEMIDE 40 MG/4 ML VIAL IV SCH (06:00)
--- NOTE | 2024-01-26 07:04 | ECG ---
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
--- NOTE | 2024-01-26 07:04 | ECG ---
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
--- NOTE | 2024-01-26 07:05 | ECG ---
[facility] Test Date: 2024-01-26 Test Time: 00:52:50 Pat Name: AMPARO FROST Department: ER Room: [address] [place] [address] Gender: M Pole Classifier: : 1960 Requested By: MAURICIO JAMES Order Number: [id number] Reading MD: Akin Hull Measurements Intervals [place] Rate: 100 P: 39 AL: 173 QRS: -65 QRSD: 159 T: 97 QT: 374 QTc: 483 Interpretive Statements Sinus tachycardia Left bundle branch block Electronically Signed On 01-30-2024 12:34:43 PST by Akin Hull Please click the below link to view image of tracing.
[2024-01-26] MEDS: AMIODARONE BOLUS KIT 100 ML IV ONE ×3 (07:22→07:51)
[2024-01-26] MEDS: AMIODARONE 450mg/250ml AE 250 ML IV ONE (07:24)
[2024-01-26] MEDS: MIDAZOLAM HCL 5 MG/ML-1ML VIAL IV ONE (07:25)
[2024-01-26] MEDS: MIDAZOLAM HCL 5 MG/ML-1ML VIAL ONE (07:27)
[2024-01-26] MEDS: AMIODARONE 450mg/250ml AE 250 ML IV SCH ×2 (07:38→15:35)
--- NOTE | 2024-01-26 08:37 | ECG ---
[facility] Test Date: 2024-01-26 Test Time: 07:13:13 Pat Name: AMPARO FROST Department: er Room: [address] [place] [address] Gender: M Study Director: kelly : 1960 Requested By: MITCHELL BAEZA Order Number: [id number] Reading MD: Akin Hull Measurements Intervals [place] Rate: 152 P: -19 NV: 132 QRS: -89 QRSD: 173 T: 81 QT: 370 QTc: 589 Interpretive Statements Sinus tachycardia Nonspecific IVCD with LAD LVH with secondary repolarization abnormality Electronically Signed On 01-30-2024 12:35:00 PST by Akin Hull Please click the below link to view image of tracing.
--- NOTE | 2024-01-26 08:57 | DVHINCON2 ---
Date Seen: Jan 26, 2024 Referring Physician MD Rafia Reason for Consultation NSTEMI History of Present Illness This is a 63-year-old man who presented to the emergency room via EMS with a chief complaint of shortness of breath for one week. At time of assessment, the patient was found severely lethargic and sustaining a sinus tachycardia rhythm in the 150s bpm. Information obtained from at bedside, somewhat poor historian, who states the patient developed progressive shortness of breath associated with generalized weakness missing his hemodialysis treatment this past Friday but attending on Friday. Denies chest pain, palpitations, or syncopal events. During admission in the emergency room the patient transitioned into a ventricular tachycardia rhythm with pulse undergoing synchronized DC cardioversion with shock delivered at 100 joules by ED staff. Cardiology consulted STAT given change in hemodynamics, tachyarrhythmia, and elevated troponin levels. Follows up with primary route sales driver at [facility] with upcoming appointment on 01/1924. Per , he was recently Rx Viagra. Significant medical history includes nonischemic cardiomyopathy status post edouard l-chamber AICD (Medtronic) implanted at [facility] in 2018, paroxysmal atrial fibrillation on Eliquis and amiodarone, hypertension, COPD, end-stage renal disease on hemodialysis -, benign prostatic hyperplasia, peripheral neuropathy, and obesity. Past Medical History Past medical history reviewed. No other significant than mentioned above. Past Surgical History AICD implantation (Medtronic), 2018 Dialysis access Family History: FH: cancer FH: colon cancer G8 MOTHER Family History Family history reviewed. Social History Denies the use of illicit drugs, alcohol, or tobacco use. Allergies: Coded Allergies: NO KNOWN ALLERGIES (Unverified , 03/25/23) Home Meds Active Scripts Prednisone (Prednisone) 20 Mg Tab, 20 MG PO BID for 5 Days, #10 TAB Prov:DORA STEVENSON MD 03/28/23 Doxycycline (Monohydrate) (Doxycycline) 100 Mg Cap, 100 MG PO BID for 5 Days, #10 CAP Prov:DORA STEVENSON MD 03/28/23 Prednisone (Prednisone) 20 Mg Tab, 20 MG PO BID for 5 Days, #10 MG Prov:KLAUS FOLEY 03/28/23 Doxycycline Monohydrate (Doxycycline Monohydrate) 100 Mg Cap, 100 MG PO BID for 5 Days, #10 CAP Prov:KLAUS FOLEY RESIDENT 03/28/23 Dextromethorphan-Guaifenesin (Robitussin-Dm) 10 Ml Sr, 10 ML PO TID for 7 Days, #60 SYP Prov:KLAUS FOLEY RESIDENT 03/28/23 Prednisone (Prednisone) 20 Mg Tab, 20 MG PO BID for 5 Days, #10 MG Prov:KLAUS FOLEY RESIDENT 03/28/23 Doxycycline Monohydrate (Doxycycline Monohydrate) 100 Mg Cap, 100 MG PO BID for 5 Days, #10 CAP Prov:KLAUS FOLEY RESIDENT 03/28/23 Reported Medications Hydrocodone-Acetaminophen (Hydrocodone/Acetaminophen 10-325 mg) 1 Tab Tab, 1 TAB PO QID PRN for PAIN SCALE 7 THRU 10 03/27/23 Tamsulosin Hcl (Tamsulosin Hcl) 0.4 Mg Cap, 1 CAP PO DAILY 03/27/23 Albuterol Sulfate (Albuterol Sulfate Hfa) 108 Mcg/Act Aer, 2 PUFF PO PRN for SHORTNESS OF BREATH 03/27/23 Pantoprazole Sodium (Pantoprazole Sodium) 40 Mg Wei 03/27/23 Lorazepam (Lorazepam) 2 Mg Tab, 1 TAB PO 03/27/23 Gabapentin (Gabapentin) 300 Mg Cap, 1 CAP PO BID 03/27/23 Apixaban Base (ELIQUIS) 5 Mg Tab, 1 TAB PO BID 03/27/23 Carvedilol (Carvedilol) 25 Mg Tab, 1 TAB PO BID 03/27/23 Amiodarone Hcl (AMIODARONE HCL) 100 Mg Tab, 2 TAB PO DAILY 03/27/23 Home Meds Home medications reviewed. Current Medications Current Medications Medications (Trade) Dose Ordered Sig/Estelle Route PRN Reason Start Time Stop Time Status Last Admin Docusate Sodium (Colace Capsule) 100 mg BIDPRN PRN PO FOR CONSTIPATION 01/26/24 00:45 Acetaminophen (Tylenol Tablet) 650 mg Q6HP PRN PO PAIN SCALE 1-3 OR TEMP>100.4 01/26/24 00:45 Morphine Sulfate 2 mg Q4HPRN PRN IV SEVERE PAIN (7-10 PAIN SCALE) 01/26/24 00:45 Nitroglycerin (Ntrostat Sublingual) 0.4 mg Q5MINP PRN SL FOR CHEST PAIN 01/26/24 00:45 Morphine Sulfate 2 mg Q30M PRN IV FOR CHEST PAIN 01/26/24 00:45 Atorvastatin Calcium (Lipitor) 80 mg HS PO 01/26/24 22:00 01/26/24 01:38 DC Heparin Sodium/ Dextrose 250 ml @ 12 mls/hr [id number] IV 01/26/24 01:30 01/26/24 01:38 DC Tamsulosin HCl (Flomax) 0.4 mg DAILY PO 01/26/24 10:00 01/26/24 01:38 DC Patient Own Medication 2 tab DAILY PO 01/26/24 10:00 01/26/24 01:38 DC Furosemide (Lasix Injection) 40 mg BIDD IV 01/26/24 06:00 01/26/24 01:38 DC Albuterol (Ventolin Medneb) 2.5 mg Q6HPRN PRN NEB SHORTNESS OF BREATH 01/26/24 01:45 01/26/24 01:38 DC Ipratropium [place] (Atrovent Medneb) 0.5 mg Q6HPRN PRN NEB SHORTNESS OF BREATH 01/26/24 01:45 01/26/24 01:38 DC Doxycycline Hyclate 250 ml @ 125 mls/hr Q12H IV 01/26/24 01:45 01/26/24 01:38 DC Methylprednisolone Sodium Succinate (Solu Medrol) 40 mg BID IV 01/26/24 10:00 01/26/24 01:38 DC Hydralazine HCl (Apresoline Injection) 10 mg Q6HP PRN IV SBP>150 01/26/24 01:45 Pantoprazole Sodium (Protonix) 40 mg DAILY IV 01/26/24 10:00 Ipratropium [place] (Atrovent Medneb) 0.5 mg Q6HPRN PRN NEB SHORTNESS OF BREATH 01/26/24 02:00 Furosemide (Lasix Injection) 40 mg BIDD IV 01/26/24 06:00 Doxycycline Hyclate 250 ml @ 125 mls/hr Q12H IV 01/26/24 11:00 01/26/24 02:07 DC Atorvastatin Calcium (Lipitor) 80 mg HS PO 01/26/24 22:00 Tamsulosin HCl (Flomax) 0.4 mg DAILY PO 01/26/24 10:00 Albuterol (Ventolin Medneb) 2.5 mg Q6HPRN PRN NEB SHORTNESS OF BREATH 01/26/24 02:00 Methylprednisolone Sodium Succinate (Solu Medrol) 40 mg BID IV 01/26/24 10:00 Amiodarone HCl (Cordarone Tablet) 200 mg DAILY PO 01/26/24 10:00 01/26/24 07:48 DC Heparin Sodium/ Dextrose 250 ml @ 12 mls/hr [id number] IV 01/26/24 01:45 01/26/24 02:07 DC Doxycycline Hyclate 250 ml @ 125 mls/hr Q12H IV 01/26/24 11:00 Heparin Sodium/ Dextrose 250 ml @ 10 mls/hr Q24H IV 01/26/24 02:00 01/26/24 04:42 Amiodarone HCl 250 ml @ 33.333 mls/ hr Q7H30M IV 01/26/24 07:45 01/26/24 13:44 Review of Systems Constitutional: Generalized weakness Ears, Nose, & Throat: No symptom reported Eyes: No symptom reported Neurological: No symptoms reported Pulmonary/Respiratory: SOB Cardiovascular: No symptom reported Gastrointestinal: No symptom reported Genitourinary: No symptom reported Musculoskeletal: No symptom reported Skin: No symptom reported Psychiatric: No symptom reported Endocrine: No symptom reported Hemotologic/Lymphatic: No symptom reported Vital Signs Vital Signs Date Time Temp Pulse Resp B/P (MAP) Pulse Ox O2 Delivery O2 Flow Rate FiO2 01/26/24 08:26 152 77/55 96 Facial BiPAP Mask 55 01/26/24 07:30 23 01/26/24 07:20 97.5 97.5 01/26/24 07:20 0 Physical Exam General Appearance: Cooperative. Lethargic. Obese. Severe acute distress Head Exam: Normal inspection Neck Exam: Normal inspection. Non-tender. Normal alignment Pulmonary/Respiratory: Chest non-tender. Crackles to bilateral breath sounds Cardiovascular/Chest: Regular rate and rhythm. S1, S2. Unstable V-tach status post synchronized DC cardioversion. Now NSR. No murmurs. No JVD. Peripheral Pulses: 2+ Radial (R). 2+ Radial (L). 2+ Pedal (R). 2+ Pedal (L) Abdominal Exam: Normal bowel sounds. Soft. Nontender. No hepatospenomegaly. No masses Ankle Exam: Negative ankle edema Lower extremities: Negative lower extremity edema Neuro/Mental Status: A&O x3. Coherent Thoughts/Psych: Normal thought pattern. Somewhat withdrawn Appearance: Severe acute distress Skin Exam: Normal inspection. Normal color. Warm. Dry Labs/Diagnostic Data Labs Test 01/26/24 04:35 01/26/24 02:22 01/26/24 01:20 01/26/24 00:59 Range/Units White Blood Count 3.6 L 4.4-10.8 10^3/uL Red Blood Count 3.11 L 4.5-5.90 10^6/uL Hemoglobin 10.6 L 13.5-17.5 g/dL Hematocrit 30.6 L 41.0-53.0 % Mean Corpuscular Volume 98.5 80.0-100.0 fL Mean Corpuscular Hemoglobin 34.0 H 28.0-32.0 pg Mean Corpuscular Hemoglobin Concent 34.6 32.0-36.0 g/dL Red Cell Distribution Width 14.8 H 11.8-14.3 % Platelet Count 141 140-450 10^3/uL Mean Platelet Volume 7.7 6.9-10.8 fL Neutrophils (%) (Auto) 88.8 H 37.0-80.0 % Lymphocytes (%) (Auto) 7.9 L 10.0-50.0 % Monocytes (%) (Auto) 3.2 0.0-12.0 % Eosinophils (%) (Auto) 0.0 0.0-7.0 % Basophils (%) (Auto) 0.1 0.0-2.0 % Neutrophils # (Auto) 3.2 1.6-8.6 10 ^3/uL Lymphocytes # (Auto) 0.3 L 0.4-5.4 10 ^3/uL Monocytes # (Auto) 0.1 0-1.3 10 ^3/uL Eosinophils # (Auto) 0 0-0.8 10 ^3/uL Basophils # (Auto) 0 0-0.2 10 ^3/uL Nucleated Red Blood Cells 0.1 % Sodium Level 128 L 136-145 mmol/L Potassium Level 4.6 3.5-5.1 mmol/L Chloride Level 86 L 98-107 mmol/L Carbon Dioxide Level 27 20-31 mmol/L Anion Gap 15 5-15 Blood Urea Nitrogen 63 H 9-23 mg/dL Creatinine 11.07 *H 0.700-1.30 mg/dL Glomerular Filtration Rate Calc 5 >90 mL/min BUN/Creatinine Ratio 5.7 L 10.0-20.0 Serum Glucose 120 H 74-106 mg/dL Calcium Level 9.7 8.7-10.4 mg/dL Magnesium Level 2.1 1.6-2.6 mg/dL Total Bilirubin 0.7 0.2-1.0 mg/dL Aspartate Amino Transferase (AST) 29 13-40 U/L Alanine Aminotransferase (ALT) 22 7-40 U/L Alkaline Phosphatase 95 46-116 U/L Troponin I High Sensitivity 3971 *H </=54 ng/L Total Protein 6.5 5.7-8.2 g/dL Albumin 4.0 3.2-4.8 g/dL Plasma/Serum Blood Alcohol < 3.0 <10 mg/dL Prothrombin Time 11.4 9.3-11.8 sec Prothrombin Time INR 1.08 0.9-1.15 Activated Partial Thromboplast Time 34.2 24.5-34.5 SEC Lactic Acid Level 2.0 0.4-2.0 mmol/L Thyroid Stimulating Hormone (TSH) 0.24 L 0.55-4.78 uIU/mL Influenza Type A Antigen Negative Negative Influenza Type B Antigen Negative Negative SARS-CoV-2 Antigen (Rapid) Negative NEGATIVE Test 01/25/24 22:08 01/25/24 21:47 Range/Units B-Type Natriuretic Peptide > 5000.00 0-100 pg/mL Blood Gas Specimen Type Arterial Blood Gas Sample Site Left brachial Blood Gas Patient Temperature 37.0 Arterial Blood Date Drawn [id number] Arterial Blood pH 7.301 L 7.350-7.450 Arterial Blood Partial Pressure CO2 42.5 35.0-48.0 mmHg Arterial Blood Partial Pressure O2 130.3 H 83.0-108.0 mmHg Arterial Blood HCO3 20.5 L 21.0-28.0 mmol/L Arterial Blood Oxygen Saturation 96.7 94.0-98.0 % Arterial Blood Base Excess -5.6 L -2.0-3.0 mmol/L Arterial Blood Oxyhemoglobin 94.6 94.0-98.0 % Arterial Blood Carboxyhemoglobin 1.9 H 0.5-1.5 % Arterial Blood Methemoglobin 0.3 0.0-1.5 % Lexa Test N/a Blood Gas Total Hemoglobin 11.90 L 13.5-17.5 g/dL Blood Gas Set Respiration Rate 12.0 Blood Gas Modality Mask - bipap Blood Gas Spontaneous Rate 37 FiO2 % 100.0 Blood Gas Spontaneous Tidal Volume 611 Blood Gas EPAP 5 Blood Gas IPAP [address]-elevation myocardial infarction rule out coronary artery disease Monomorphic ventricular tachycardia status post synchronized DC cardioversion Hx of nonischemic cardiomyopathy status post AICD (medtronic, 2018) 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 Rowley) Scheduled for urgent/emergent cardiac catheterization and coronary angiogram at first available. All risks and benefits of the procedure were discussed with the patient and at bedside who agreed to proceed with intervention. All questions answered. In the meantime, continue amiodarone drip per pharmacy protocol as well as heparin drip. Monitor ECG changes closely and notify. The patient will require urgent hemodialysis postprocedure. Thank you for allowing us to participate in this patient's care. Please call if you have any questions or concerns. Critical care time: 60 min. This medical document was created using an electronic medical record system with voice recognition software and comput erized dictation system. Although this document has been carefully reviewed, there might still be some phonetic and typographical errors. Occasional wrong- word or ``sound-alike substitutions may have occurred due to the inherent limitations of voice recognition software. These areas are purely typographical due to imperfections of the software programs and do not reflect any compromise in the patient's medical care. Please read the chart carefully and recognize, using context, where these substitutions have occurred. Plan discussed with: Patient, Spouse, Other NYHA Physical activity limitations: Class4(Severe)discomfort (w any activit,symptoms at rest) Date of Service: Jan 26, 2024 Billing Provider: KAYDEN ROWLEY MD Cardiology Common Codes: 35722-DLJWYQOM CARE 30-74 MIN [facility] Jan 26, 2024 08:57
[2024-01-26] MEDS: METOPROLOL TARTRATE 1MG/1ML-5ML VIAL IV ONE ×6 (08:59→23:35)
[2024-01-26] MEDS: TAMSULOSIN HYDROCHLORIDE 0.4 MG CAP PO SCH (10:00)
[2024-01-26] MEDS ORDERED: AMIODARONE HCL 200 MG TAB PO SCH (10:00)
[2024-01-26] MEDS ORDERED: AMIODARONE HCL PO SCH (10:00)
[2024-01-26] MEDS ORDERED: methylPREDNISolone SOD SUCC 40 MG/ML VL IV SCH (10:00)
[2024-01-26] MEDS ORDERED: TAMSULOSIN HYDROCHLORIDE 0.4 MG CAP PO SCH (10:00)
[2024-01-26 10:11] LABS: INR 1.03 (0.9-1.15); Partial Thromboplastin Time 34.1 SEC (24.5-34.5); Prothrombin Time 10.9 sec (9.3-11.8)
[2024-01-26] MEDS: IODIXANOL 320MG/ML 100ML BTL IV ONE (10:29)
[2024-01-26] MEDS: MIDAZOLAM HCL 2MG/2ML 2ml VIAL (1mg/ml) ONE (10:41)
[2024-01-26] MEDS: VERAPAMIL 2.5MG/ML INJ 2ML VIAL IV ONE (10:41)
[2024-01-26] MEDS: ANGIOMAX 250 MG VIAL IV ONE (10:41)
[2024-01-26] MEDS: LIDOCAINE 2%HCL (LOCAL ANESTH.) INJ 20ML MDV ONE (10:41)
[2024-01-26] MEDS: SODIUM CHL 0.9% 0 ML ONE (10:41)
[2024-01-26] MEDS: fentaNYL CITRATE 100 MCG/2 ML VL ONE ×2 (10:42→15:34)
--- NOTE | 2024-01-26 11:11 | DVHNC2 ---
Cardioversion Vagal maneuver: Were not attempted Attempts: x1 Resulted Rhythm: NSR Direct Supervision: Yes Informed consent obtained: No Risks/benefits/alt described: No UTO Consent Emergent intervention for unstable monomorphic ventricular tachycardia Notes Late entry. Procedure completed at 0938. Performed synchronized DC cardioversion. Indication unstable monomorphic ventricular tachycardia with severe respiratory distress, weakness, and change in mental status. No sedation was given as the patient was previously medicated for previous DC cardioversion in addition to increased lethargy/work of breathing on BiPAP for O2 support. Synchronized DC cardioversion completed with 100 joules and successful transition from a ventricular tachycardia rhythm to a sinus rhythm. The patient was easily arousable post intervention with no obvious neurological deficits. He is currently on an amiodarone drip per pharmacy protocol as well as a heparin drip for NSTEMI. Plan is to continue urgent/emergent cardiac catheterization and coronary angiogram at fist available. Date of Service: Jan 26, 2024 Billing Provider: FEMI PRABHAKAR Cardiology Common Codes: PROCEDURE ONLY Cardiology Procedure Codes: 36258-TQ CARDIOVERSION FEMI PRABHAKAR Jan 26, 2024 11:11
[2024-01-26] MEDS: HEPARIN SODIUM (PORCINE) 5000 UNITS/ML 1ML VIAL ONE (11:25)
--- NOTE | 2024-01-26 12:01 | DVHOP2 ---
Operative Report -Cardiology Report Details Date: 01/26/24 Preop Diagnosis: Non ST-elevation myocardial infarction complicated by recurrent ventricular tachycardia Postop Diagnosis: Coronary angiography revealed the ostial left main of 75%. Proximal LAD at 85% involving mid segment of 85% and ostial diagonal branches 75-80% with a long tubular lesion to the diagonal 90%. There is subtotal occlusion of the left circumflex system. The 1st obtuse marginal branch has distal disease and 90%. In the right coronary artery is chronically occluded in the proximal segment. Finding is suggestive of three-vessel disease involving left main. IVUS interrogation confirmed minimal luminal area of 6 centimeters squared to the left main with a minimal diameter of 1.9 and maximum diameter of 3.7 mm. Also the LAD is significantly diseased with a minimal luminal area of less than 3 cm squares. Given history of V-tach I would recommend coronary artery bypass graft surgery in high-level care facility. Surgeon: Veronika Weiner MD Anesthesiologist: Conscious sedation using25 mcg of fentanyl as well as a mg IV midazolam. It was given under the direct supervision of the primary lithographic general worker myself in the presence of the attending nurses. Patient was monitored for total of 40 minutes without obvious complication. Anesthesia: Local Consent: The patient was informed of the risks and benefits of the procedure. These include but are not limited to complications of anesthesia, postoperative infection, incomplete relief of symptoms, recurrence of symptoms, damage to blood vessels, nerves and tendons, deep venous thrombosis, pulmonary embolism and possible need for repeat surgery in the future. Indications for Surgery: This is a 63-year-old man who presented to the emergency room via EMS with a chief complaint of shortness of breath for one week. At time of assessment, the patient was found severely lethargic and sustaining a sinus tachycardia rhythm in the 150s bpm. Information obtained from at bedside, somewhat poor historian, who states the patient developed progressive shortness of breath associated with generalized weakness missing his hemodialysis treatment this past Friday but attending on Friday. Denies chest pain, palpitations, or syncopal events. During admission in the emergency room the patient transitioned into a ventricular tachycardia rhythm with pulse undergoing synchronized DC cardioversion with shock delivered at 100 joules by ED staff. Cardiology consulted STAT given change in hemodynamics, tachyarrhythmia, and elevated troponin levels. Follows up with primary lithographic general worker at [facility] with upcoming appointment on 01/1924. Per , he was recently Rx Viagra. Significant medical history includes nonischemic cardiomyopathy status post dual-chamber AICD (Medtronic) implanted at [facility] in 2018, paroxysmal atrial fibrillation on Eliquis and amiodarone, hypertension, COPD, end-stage renal disease on hemodialysis M-W-, benign prostatic hyperplasia, peripheral neuropathy, and obesity. Name of Procedure Performed 1. Ultrasound-guided right femoral arterial access. 2 Left heart catheterization with left ventricular end-diastolic pressure measurement. 3. Selective right and left coronary angiography utilizing right femoral approach. 4. Conscious sedation using25 mcg of fentanyl as well as a mg of midazolam. 5. Intravascular ultrasound interrogation of the left main and left anterior descending artery indicating high level stenosis and left main with a minimal lumen area of 6 centimeters squared. 6. Vascular closure device application to the right femoral arteriotomy site using six Samoan Angio-Seal without difficulty. Procedure Details Procedure Details: Procedure note and vascular access: After informed consent was obtained risks, benefits, complications, and alternatives were discussed in details with the patient who agrees to have the procedure done. At the beginning of the procedure, the right femoral area was prepped and draped in regular sterile fashion. Before total of 10 cc of 1% xylocaine was given locally. Patient also received conscious sedation sedation using25 mcg of fentanyl as well as a mg of midazolam direct supervision of myself. Was monitored for total of45 minutes during the procedure without obvious complication. After confirmation of right femoral arteriotomy site above bifurcation using micropuncture kit the micropuncture kit was exchanged for a six Samoan sheath without difficulty using modified Seldinger technique. A preshaped Alexx right as well as Alexx left system were used to engage the right and left coronary system. Finally the Alexx left was exchanged for an XB 3.5 guiding catheter as well as C-arm blue to undergo ultrasound interrogation of the left main and left anterior descending artery findings were as follows: 1. Left heart catheterization with left ventricular end-diastolic pressure measurement: With the help of a J-tip J.R. diagnostic catheter as well as Bentson wire were able to cross the aortic valve measured left ventricular end-diastolic pressure which was elevated at 15 mm of mercury. There was no significant gradient across the aortic valve on the pullback. 2. Selective right and left coronary angiography utilizing right femoral arterial access: 1. The right coronary artery comes off the right coronary cusp it is proximally occluded followed by auto collaterals and reconstitutes in the mid segment for short part before it would disappear again with total occlusion distally with a cell collateral from the left system. 2. The left main comes off the left coronary cusp there is an ostial left main disease at 50-60%. 3. The left anterior descending artery is transapical with a type 3 course, it has a proximal disease at 85% involving small diagonal branch. There is a 2nd lesion of 75% of the mid segment with a ostial 75% 2nd diagonal branch with a long tubular lesion in the mid part of the 2nd diagonal branch. The distal LAD has a irregularity with no significant stenosis a good target vessel. 4. The left circumflex system is medium-sized vessels it gives rise to large 1st obtuse marginal branch, the obtuse marginal branch has long tubular lesion at the distal part at 90%. The left circumflex proper is subtotally occluded with collateral from the left system. 3. Intravascular ultrasound interrogation of the left main and left anterior descending artery: With the help of [place] intravascular ultrasound probe with a over the wire advancement of the IVUS we were able to withdraw the device and record the minimal luminal area of the left main which was measured at 6 centimeters squared with a minimal diameter of 1.9 and maximum diameter of 3.2 Mm squared. The LAD has significant stenosis with a minimal luminal area of 3.4 centimeters squared. 4. Vessel occlusion device application using six Samoan Angio-Seal: The six Samoan sheath was exchanged over the wire for an Angio-Seal six Samoan system was applied without difficulty with good hemostasis. Impression and plan: 1. Ostial left main disease likely significant given history of ventricular tachycardia and non ST-elevation myocardial infarction as well as intravascular ultrasound interrogation. 2. Diffuse three-vessel disease involving the chronic total occlusion of the prox right coronary artery, subtotally occluded mid left anterior descending artery, distal obtuse marginal branch disease at 90%, and proximal to mid LAD tandem lesion at 85-75% involving the ostial diagonal with a also mid tubular lesion of the same diagonal branch. Given the nature of the patient the disease he would benefit from vascular revascularization using open heart surgery. 3. Patient would need an echocardiogram to assess left ventricular ejection fraction and proceed with goal-directed therapy. 4. Patient would need to be transferred to higher level of care were other o ptions of surgical revascularization this could be consider. Given history of recurrent VT I would recommend an expedited transfer. Condition Poor [facility] Clinical Frailty Scale [facility] Clinical Frailty Scale: Moderately Frail Dominance Dominance: Right Lesion Lesion Complexity: High/C Disposition VERONIKA WEINER MD Jan 26, 2024 12:01
[2024-01-26 12:44] LABS: Free T3 2.17 pg/mL (2.3-4.2)
[2024-01-26 12:45] LABS: Free T4 (Free Thyroxine) 1.34 ng/dL (0.89-1.76)
--- NOTE | 2024-01-26 13:07 | DVHINCON2 ---
Date of service: Jan 26, 2024 Reason for Consultation End-stage kidney disease on dialysis History of Present Illness This is a 63-year-old male with history of end-stage kidney disease on hemodialysis, nonischemic cardiomyopathy for which he has undergone AICD placement in 2018, paroxysmal atrial fibrillation, hypertension, obesity, COPD, BPH presenting to the emergency room complaining of shortness of breath which has been going on for about a week. As per the history he did miss a session of dialysis last week. Chest x-ray with evidence of pulmonary edema. Initial evaluation in the emergency room showed elevated troponins. During his ER stay patient developed V-tach rhythm for which he underwent cardioversion . [facility] emerg[facility] where he was noted to have multivessel disease and is awaiting transfer to higher level of care for CABG. Nephrology has been consulted for continuation of dialysis. Last dialysis was on Friday. He usually gets dialysis in [facility]. Right upper extremity AV fistula. Past Medical History As stated above Past Surgical History AV fistula placement AICD placement Family History: FH: cancer FH: colon cancer G8 MOTHER Social History Denies any active history of smoking, alcohol or drug abuse Allergies: Coded Allergies: NO KNOWN ALLERGIES (Unverified , 03/25/23) Home Meds Active Scripts Prednisone (Prednisone) 20 Mg Tab, 20 MG PO BID for 5 Days, #10 TAB Prov:DORA STEVENSON MD 03/28/23 Doxycycline (Monohydrate) (Doxycycline) 100 Mg Cap, 100 MG PO BID for 5 Days, #10 CAP Prov:DORA STEVENSON MD 03/28/23 Prednisone (Prednisone) 20 Mg Tab, 20 MG PO BID for 5 Days, #10 MG Prov:KLAUS FOLEY RESIDENT 03/28/23 Doxycycline Monohydrate (Doxycycline Monohydrate) 100 Mg Cap, 100 MG PO BID for 5 Days, #10 CAP Prov:KLAUS FOLEY RESIDENT 03/28/23 Dextromethorphan-Guaifenesin (Robitussin-Dm) 10 Ml Sr, 10 ML PO TID for 7 Days, #60 SYP Prov:KLAUS FOLEY RESIDENT 03/28/23 Prednisone (Prednisone) 20 Mg Tab, 20 MG PO BID for 5 Days, #10 MG Prov:KLAUS FOLEY RESIDENT 03/28/23 Doxycycline Monohydrate (Doxycycline Monohydrate) 100 Mg Cap, 100 MG PO BID for 5 Days, #10 CAP Prov:GOKLAUS RESIDENT 03/28/23 Reported Medications Hydrocodone-Acetaminophen (Hydrocodone/Acetaminophen 10-325 mg) 1 Tab Tab, 1 TAB PO QID PRN for PAIN SCALE 7 THRU 10 03/27/23 Tamsulosin Hcl (Tamsulosin Hcl) 0.4 Mg Cap, 1 CAP PO DAILY 03/27/23 Albuterol Sulfate (Albuterol Sulfate Hfa) 108 Mcg/Act Aer, 2 PUFF PO PRN for SHORTNESS OF BREATH 03/27/23 Pantoprazole Sodium (Pantoprazole Sodium) 40 Mg Ewi 03/27/23 Lorazepam (Lorazepam) 2 Mg Tab, 1 TAB PO 03/27/23 Gabapentin (Gabapentin) 300 Mg Cap, 1 CAP PO BID 03/27/23 Apixaban Base (ELIQUIS) 5 Mg Tab, 1 TAB PO BID 03/27/23 Carvedilol (Carvedilol) 25 Mg Tab, 1 TAB PO BID 03/27/23 Amiodarone Hcl (AMIODARONE HCL) 100 Mg Tab, 2 TAB PO DAILY 03/27/23 Current Medications Current Medications Medications (Trade) Dose Ordered Sig/Estelle Route PRN Reason Start Time Stop Time Status Last Admin Docusate Sodium (Colace Capsule) 100 mg BIDPRN PRN PO FOR CONSTIPATION 01/26/24 00:45 Acetaminophen (Tylenol Tablet) 650 mg Q6HP PRN PO PAIN SCALE 1-3 OR TEMP>100.4 01/26/24 00:45 Morphine Sulfate 2 mg Q4HPRN PRN IV SEVERE PAIN (7-10 PAIN SCALE) 01/26/24 00:45 Nitroglycerin (Ntrostat Sublingual) 0.4 mg Q5MINP PRN SL FOR CHEST PAIN 01/26/24 00:45 Morphine Sulfate 2 mg Q30M PRN IV FOR CHEST PAIN 01/26/24 00:45 Atorvastatin Calcium (Lipitor) 80 mg HS PO 01/26/24 22:00 01/26/24 01:38 DC Heparin Sodium/ Dextrose 250 ml @ 12 mls/hr [id number] IV 01/26/24 01:30 01/26/24 01:38 DC Tamsulosin HCl (Flomax) 0.4 mg DAILY PO 01/26/24 10:00 01/26/24 01:38 DC Patient Own Medication 2 tab DAILY PO 01/26/24 10:00 01/26/24 01:38 DC Furosemide (Lasix Injection) 40 mg BIDD IV 01/26/24 06:00 01/26/24 01:38 DC Albuterol (Ventolin Medneb) 2.5 mg Q6HPRN PRN NEB SHORTNESS OF BREATH 01/26/24 01:45 01/26/24 01:38 DC Ipratropium Bee (Atrovent Medneb) 0.5 mg Q6HPRN PRN NEB SHORTNESS OF BREATH 01/26/24 01:45 01/26/24 01:38 DC Doxycycline Hyclate 250 ml @ 125 mls/hr Q12H IV 01/26/24 01:45 01/26/24 01:38 DC Methylprednisolone Sodium Succinate (Solu Medrol) 40 mg BID IV 01/26/24 10:00 01/26/24 01:38 DC Hydralazine HCl (Apresoline Injection) 10 mg Q6HP PRN IV SBP>150 01/26/24 01:45 Pantoprazole Sodium (Protonix) 40 mg DAILY IV 01/26/24 10:00 Ipratropium Bee (Atrovent Medneb) 0.5 mg Q6HPRN PRN NEB SHORTNESS OF BREATH 01/26/24 02:00 Furosemide (Lasix Injection) 40 mg BIDD IV 01/26/24 06:00 Doxycycline Hyclate 250 ml @ 125 mls/hr Q12H IV 01/26/24 11:00 01/26/24 02:07 DC Atorvastatin Calcium (Lipitor) 80 mg HS PO 01/26/24 22:00 Tamsulosin HCl (Flomax) 0.4 mg DAILY PO 01/26/24 10:00 Albuterol (Ventolin Medneb) 2.5 mg Q6HPRN PRN NEB SHORTNESS OF BREATH 01/26/24 02:00 Methylprednisolone Sodium Succinate (Solu Medrol) 40 mg BID IV 01/26/24 10:00 Amiodarone HCl (Cordarone Tablet) 200 mg DAILY PO 01/26/24 10:00 01/26/24 07:48 DC Heparin Sodium/ Dextrose 250 ml @ 12 mls/hr [id number] IV 01/26/24 01:45 01/26/24 02:07 DC Doxycycline Hyclate 250 ml @ 125 mls/hr Q12H IV 01/26/24 11:00 Heparin Sodium/ Dextrose 250 ml @ 10 mls/hr Q24H IV 01/26/24 02:00 01/26/24 04:42 Amiodarone HCl 250 ml @ 33.333 mls/ hr Q7H30M IV 01/26/24 07:45 01/26/24 13:44 01/26/24 07:38 Review of Systems Twelve point review of system negative except as stated in the HPI Vital Signs Vital Signs Date Time Temp Pulse Resp B/P (MAP) Pulse Ox O2 Delivery O2 Flow Rate FiO2 01/26/24 10:02 97 Oxymizer 4.0 01/26/24 10:00 84 16 121/76 (91) 01/26/24 09:44 55 01/26/24 07:20 97.5 97.5 Physical Exam Awake and alert HEENT: Normocephalic, no JVD Lungs: Bibasilar rales CVS: S1, S2 regular rate rhythm Abdomen: Soft, bowel sounds present 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 SERVICE 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: No focal deficits Extremities: Edema present Labs/Diagnostic Data Labs Test 01/26/24 09:52 01/26/24 09:29 01/26/24 04:35 01/26/24 02:22 Range/Units Blood Gas Specimen Type Arterial Blood Gas Sample Site Left radial Blood Gas Patient Temperature 37.0 Arterial Blood Date Drawn [id number] Arterial Blood pH 7.288 L 7.350-7.450 Arterial Blood Partial Pressure CO2 46.1 35.0-48.0 mmHg Arterial Blood Partial Pressure O2 125.3 H 83.0-108.0 mmHg Arterial Blood HCO3 21.6 21.0-28.0 mmol/L Arterial Blood Oxygen Saturation 97.3 94.0-98.0 % Arterial Blood Base Excess -5.0 L -2.0-3.0 mmol/L Arterial Blood Oxyhemoglobin 96.2 94.0-98.0 % Arterial Blood Carboxyhemoglobin 0.8 0.5-1.5 % Arterial Blood Methemoglobin 0.3 0.0-1.5 % Lexa Test Yes Blood Gas Total Hemoglobin 11.60 L 13.5-17.5 g/dL Blood Gas Set Respiration Rate 12.0 Blood Gas Modality Mask - bipap Blood Gas Spontaneous Rate 22 FiO2 % 55.0 Blood Gas EPAP 5 Blood Gas IPAP 12 Prothrombin Time 10.9 9.3-11.8 sec Prothrombin Time INR 1.03 0.9-1.15 Activated Partial Thromboplast Time 34.1 24.5-34.5 SEC White Blood Count 3.6 L 4.4-10.8 10^3/uL Red Blood Count 3.11 L 4.5-5.90 10^6/uL Hemoglobin 10.6 L 13.5-17.5 g/dL Hematocrit 30.6 L 41.0-53.0 % Mean Corpuscular Volume 98.5 80.0-100.0 fL Mean Corpuscular Hemoglobin 34.0 H 28.0-32.0 pg Mean Corpuscular Hemoglobin Concent 34.6 32.0-36.0 g/dL Red Cell Distribution Width 14.8 H 11.8-14.3 % Platelet Count 141 140-450 10^3/uL Mean Platelet Volume 7.7 6.9-10.8 fL Neutrophils (%) (Auto) 88.8 H 37.0-80.0 % Lymphocytes (%) (Auto) 7.9 L 10.0-50.0 % Monocytes (%) (Auto) 3.2 0.0-12.0 % Eosinophils (%) (Auto) 0.0 0.0-7.0 % Basophils (%) (Auto) 0.1 0.0-2.0 % Neutrophils # (Auto) 3.2 1.6-8.6 10 ^3/uL Lymphocytes # (Auto) 0.3 L 0.4-5.4 10 ^3/uL Monocytes # (Auto) 0.1 0-1.3 10 ^3/uL Eosinophils # (Auto) 0 0-0.8 10 ^3/uL Basophils # (Auto) 0 0-0.2 10 ^3/uL Nucleated Red Blood Cells 0.1 % Sodium Level 128 L 136-145 mmol/L Potassium Level 4.6 3.5-5.1 mmol/L Chloride Level 86 L 98-107 mmol/L Carbon Dioxide Level 27 20-31 mmol/L Anion Gap 15 5-15 Blood Urea Nitrogen 63 H 9-23 mg/dL Creatinine 11.07 *H 0.700-1.30 mg/dL Glomerular Filtration Rate Calc 5 >90 mL/min BUN/Creatinine Ratio 5.7 L 10.0-20.0 Serum Glucose 120 H 74-106 mg/dL Calcium Level 9.7 8.7-10.4 mg/dL Magnesium Level 2.1 1.6-2.6 mg/dL Total Bilirubin 0.7 0.2-1.0 mg/dL Aspartate Amino Transferase (AST) 29 13-40 U/L Alanine Aminotransferase (ALT) 22 7-40 U/L Alkaline Phosphatase 95 46-116 U/L Troponin I High Sensitivity 3971 *H </=54 ng/L Total Protein 6.5 5.7-8.2 g/dL Albumin 4.0 3.2-4.8 g/dL Free Thyroxine (T4) Calculated 1.34 0.89-1.76 ng/dL Free Triiodothyronine (T3) pg/mL 2.17 L 2.3-4.2 pg/mL Plasma/Serum Blood Alcohol < 3.0 <10 mg/dL Test 01/26/24 01:20 01/26/24 00:59 01/25/24 22:08 01/25/24 21:47 Range/Units Lactic Acid Level 2.0 0.4-2.0 mmol/L Thyroid Stimulating Hormone (TSH) 0.24 L 0.55-4.78 uIU/mL Influenza Type A Antigen Negative Negative Influenza Type B Antigen Negative Negative SARS-CoV-2 Antigen (Rapid) Negative NEGATIVE B-Type Natriuretic Peptide > 5000.00 0-100 pg/mL Blood Gas Spontaneous Tidal Volume 611 Assessment End-stage kidney disease on hemodialysis Non ST-elevation MA status post left heart catheterization showing multivessel disease ventricular tachycardia status post cardioversion History of AICD placement Acute on chronic diastolic heart failure Paroxysmal atrial fibrillation Hypotension Obesity Anemia in Chronic kidney disease Plan/Recommendation We will schedule dialysis today with ultrafiltration for up to 3 L as tolerated. Continue Lasix 40 mg IV b.i.d.. To be transferred to higher level of care. Plan discussed with: Patient HIREN FELIX MD Jan 26, 2024 13:07
[2024-01-26] MEDS: AMPICILLIN & SULBACTAM SODIUM 3 GM in SODIUM CHL 0.9% 100 ML IV SCH (13:30)
[2024-01-26] MEDS: methylPREDNISolone SOD SUCC 40 MG/ML VL ONE (13:52)
[2024-01-26] MEDS: PANTOPRAZOLE 40 MG/10 ML VIAL INJ IV SCH (14:01)
[2024-01-26] MEDS: methylPREDNISolone SOD SUCC 40 MG/ML VL IV SCH (14:02)
[2024-01-26] MEDS: ADENOSINE 6 MG/2 ML INJ IV ONE (14:42)
--- NOTE | 2024-01-26 15:09 | DVHSR ---
APPROVED REPORT EXAM: Two-dimensional and M-mode echocardiogram with Doppler, color Doppler and Bubble Study. Blood Pressure: 103/36 mmHg INDICATION CHF troponin I Rule out hypokinesia Surgery/Intervention Pacemaker: RISK FACTORS Height: 6'2", Weight: 220 DIMENSIONS LVDd5.7 (3.8-5.7cm)LA (2D)4.4 (1.9-4.0cm)Aortic Root4.4 (2.0-3.7cm) LVDs5.0 (2.5-4.0cm)LA (MM) (1.9-4.0cm)Aortic Cusp Exc1.6 (1.5-2.0cm) EF (%) 30.0 (55-70%)Rt. Atrium6.5 (1.9-4.0cm)Asc. Aorta cm IVSd1.4 (0.7-1.1cm)RV (D)6.3 (1.8-2.4cm) PWd1.3 (0.7-1.1cm) Mitral Valve MitralMitral Stenosis E wave1.04m/sMV Mean GR.mmHg E/A ratio0.02D MVAcm2 Aortic Valve Aortic ValveAortic Stenosis V10.93m/Lisbeth Mean GR.4mmHg V21.29m/Lisbeth Peak GR.7mmHg LVOT Diameter2.5 (1.8-2.4cm)Doppler AVA3.54cm2 Pulmonic Valve V20.70m/s Tricuspid Valve TR Velocity2.87m/s [id number] ATRIA Injection of bubbles documented, positive bubble study. Other Information Technically limited study due to body habitus, patient lying flat. Conclusion Severely reduced left ventricular systolic function estimated ejection fraction of 30%. There is ant erior anteroapical and inferior wall hypokinesia. There is a grade 1 diastolic dysfunction. Normal right ventricular size and dimension. Moderately reduced right ventricular systolic function. ICD lead is seen in the right ventricular cavity. Moderately elevated right ventricular systolic p ressure at 48mm of mercury Normal biatrial size and dimension. Normal aortic valve structure and function. Normal mitral valve structure and function. Normal tricuspid valve structure and function. The pulmonary valve is grossly normal. No pericardial effusion.
[2024-01-26] MEDS: fentaNYL CITRATE 100 MCG/2 ML VL IV ONE (15:37)
--- NOTE | 2024-01-26 16:11 | ECG ---
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
--- NOTE | 2024-01-26 16:11 | ECG ---
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
[2024-01-26] MEDS ORDERED: ADENOSINE 6 MG/2 ML INJ IV ONE ×2 (16:15)
[2024-01-26] MEDS: SODIUM CHL 0.9% 1000 ML BAG XX ONE (16:23)
[2024-01-26] MEDS: LIDOCAINE 2% TOPICAL JELLY 5 ML URJT TOP ONE (16:39)
[2024-01-26 16:52] LABS: INR 1.05 (0.9-1.15); Partial Thromboplastin Time 32.7 SEC (24.5-34.5); Prothrombin Time 11.1 sec (9.3-11.8)
[2024-01-26 17:00] LABS: Lactic Acid w/Reflex 2.4 mmol/L (0.4-2.0)
[2024-01-26] MEDS: DOXYCYCLINE 100MG/250ML 250 ML IV SCH (18:00)
--- NOTE | 2024-01-26 19:53 | DVHDSRES ---
Discharge Summary Date of Admission Resident Creating Document: MAGDI HERNÁNDEZ RESIDENT Jan 26, 2024 at 00:43 Date of Discharge: Jan 26, 2024 Admitting Diagnosis Acute on chronic decompensated HFrecEF, latest EF 50% Paroxysmal atrial fibrillation, on Eliquis and amiodarone ESRD Anemia in chronic disease Labs/Diagnostic Data: Laboratory Results Test 01/26/24 16:25 01/26/24 09:52 01/26/24 04:35 01/26/24 02:22 Prothrombin Time 11.1 sec (9.3-11.8) Prothrombin Time INR 1.05 (0.9-1.15) Activated Partial Thromboplast Time 32.7 SEC (24.5-34.5) Lactic Acid Level 2.4 mmol/L (0.4-2.0) Blood Gas Specimen Type Arterial Blood Gas Sample Site Left radial Blood Gas Patient Temperature 37.0 Arterial Blood Date Drawn [id number] Arterial Blood pH 7.288 (7.350-7.450) Arterial Blood Partial Pressure CO2 46.1 mmHg (35.0-48.0) Arterial Blood Partial Pressure O2 125.3 mmHg (83.0-108.0) Arterial Blood HCO3 21.6 mmol/L (21.0-28.0) Arterial Blood Oxygen Saturation 97.3 % (94.0-98.0) Arterial Blood Base Excess -5.0 mmol/L (-2.0-3.0) Arterial Blood Oxyhemoglobin 96.2 % (94.0-98.0) Arterial Blood Carboxyhemoglobin 0.8 % (0.5-1.5) Arterial Blood Methemoglobin 0.3 % (0.0-1.5) Lexa Test Yes Blood Gas Total Hemoglobin 11.60 g/dL (13.5-17.5) Blood Gas Set Respiration Rate 12.0 Blood Gas Modality Mask - bipap Blood Gas Spontaneous Rate 22 FiO2 % 55.0 Blood Gas EPAP 5 Blood Gas IPAP 12 White Blood Count 3.6 10^3/uL (4.4-10.8) Red Blood Count 3.11 10^6/uL (4.5-5.90) Hemoglobin 10.6 g/dL (13.5-17.5) Hematocrit 30.6 % (41.0-53.0) Mean Corpuscular Volume 98.5 fL (80.0-100.0) Mean Corpuscular Hemoglobin 34.0 pg (28.0-32.0) Mean Corpuscular Hemoglobin Concent 34.6 g/dL (32.0-36.0) Red Cell Distribution Width 14.8 % (11.8-14.3) Platelet Count 141 10^3/uL (140-450) Mean Platelet Volume 7.7 fL (6.9-10.8) Neutrophils (%) (Auto) 88.8 % (37.0-80.0) Lymphocytes (%) (Auto) 7.9 % (10.0-50.0) Monocytes (%) (Auto) 3.2 % (0.0-12.0) Eosinophils (%) (Auto) 0.0 % (0.0-7.0) Basophils (%) (Auto) 0.1 % (0.0-2.0) Neutrophils # (Auto) 3.2 10 ^3/uL (1.6-8.6) Lymphocytes # (Auto) 0.3 10 ^3/uL (0.4-5.4) Monocytes # (Auto) 0.1 10 ^3/uL (0-1.3) Eosinophils # (Auto) 0 10 ^3/uL (0-0.8) Basophils # (Auto) 0 10 ^3/uL (0-0.2) Nucleated Red Blood Cells 0.1 % Sodium Level 128 mmol/L (136-145) Potassium Level 4.6 mmol/L (3.5-5.1) Chloride Level 86 mmol/L (98-107) Carbon Dioxide Level 27 mmol/L (20-31) Anion Gap 15 (5-15) Blood Urea Nitrogen 63 mg/dL (9-23) Creatinine 11.07 mg/dL (0.700-1.30) Glomerular Filtration Rate Calc 5 mL/min (>90) BUN/Creatinine Ratio 5.7 (10.0-20.0) Serum Glucose 120 mg/dL (74-106) Calcium Level 9.7 mg/dL (8.7-10.4) Magnesium Level 2.1 mg/dL (1.6-2.6) Total Bilirubin 0.7 mg/dL (0.2-1.0) Aspartate Amino Transferase (AST) 29 U/L (13-40) Alanine Aminotransferase (ALT) 22 U/L (7-40) Alkaline Phosphatase 95 U/L (46-116) Troponin I High Sensitivity 3971 ng/L (</=54) Total Protein 6.5 g/dL (5.7-8.2) Albumin 4.0 g/dL (3.2-4.8) Free Thyroxine (T4) Calculated 1.34 ng/dL (0.89-1.76) Free Triiodothyronine (T3) pg/mL 2.17 pg/mL (2.3-4.2) Plasma/Serum Blood Alcohol < 3.0 mg/dL (<10) Test 01/26/24 01:20 01/26/24 00:59 01/25/24 22:08 01/25/24 21:47 Thyroid Stimulating Hormone (TSH) 0.24 uIU/mL (0.55-4.78) Influenza Type A Antigen Negative (Negative) Influenza Type B Antigen Negative (Negative) SARS-CoV-2 Antigen (Rapid) Negative (NEGATIVE) B-Type Natriuretic Peptide > 5000.00 pg/mL (0-100) Blood Gas Spontaneous Tidal Volume 611 Other Laboratory Tests 01/26/24 04:35 Brief Hx & Hospital Course: Chief informant: of patient ( Ariana) This is a 63-year-old male past medical history of ESRD on HD MWF,HFpEF, COPD, A-Fib, HTN, AICD was brought to the ER by EMS due to shortness of breaths and productive sputum of 1 week. Per patient his , patient was feeling short of breath that started after experience a mild cold a week prior. Then for last 3 days his shortness of breath was gettng progressively worse and finally on 01/25/2024 patient was unable to catch his breath. Patient missed his hemodialysis on Friday, but had it on Friday. Patient reported feeling short of breath even at rest, orthopnea and PND. He also reported wheezing 2 days prior and his nebulization treatment did not help. When the EMS arrived, patient's saturation level was in the 60s and he was tachypneic. Patient denied chest pain, fever, constipation or diarrhea, acute joint pain or swelling, dysarthria or change in vision. Initial lab workup revealed elevated troponin I 3247> 3420, BNP>, Cr; 10.82, BUN 65, WBC is 3.7, platelet: 121, Na: 128, anion gap 20. Ekg revealed sinus tachycardia with suspected LBBB. Chest x-ray showed cardiomegaly and pulmonary vascular congestion, small right pleural effusion with bibasilar opacities. ABG revealed: PH 7.3, PCO2 42.5, bicarbonate 20.5. Echo (01/26/2024). Of note, patient's last admission to [facility] was on 03/28/2023 due to acute on chronic hypoxic respiratory failure and acute on chronic diastolic heart failure. His AICD was placed in 2021 due to non-ischemic cardiomyopathy, HFrEF less than 40%. In the ER, noted to be in unstable monomorphic ventricular tachycardia with severe respiratory distress, weakness, and change in mental status, therefore, had synchronized DC cardioversion for unstable monomorphic ventricular tachycardia. Then he was placed on amiodarone drip per pharmacy protocol as well as a heparin drip for NSTEMI. Later, he had Catheterization and coronary angiogram Cardiac catheterization note: Impression and plan 1. Ostial left main disease likely significant given history of ventricular tachycardia and non ST-elevation myocardial infarction as well as intravascular ultrasound interrogation. 2. Diffuse three-vessel disease involving the chronic total occlusion of the prox right coronary artery, subtotally occluded mid left anterior descending artery, distal obtuse marginal branch disease at 90%, and proximal to mid LAD tandem lesion at 85-75% involving the ostial diagonal with a also mid tubular lesion of the same diagonal branch. Given the nature of the patient the disease he would benefit from vascular revascularization using open heart surgery. 3. Patient would need an echocardiogram to assess left ventricular ejection fraction and proceed with goal-directed therapy. 4. Patient would need to be transferred to higher level of care were other options of surgical revascularization this could be consider. Given history of recurrent VT I would recommend an expedited transfer. Physical Exam General Appearance: Cooperative. Lethargic, Severe acute distress Head Exam: Normal inspection Neck Exam: Normal inspection. Non-tender. Normal alignment Pulmonary/Respiratory: Chest non-tender. Crackles to bilateral breath sounds Cardiovascular/Chest: Regular rate and rhythm. S1, S2. Unstable V-tach status post synchronized DC cardioversion. Now NSR. No murmurs. No JVD. Peripheral Pulses: 2+ Radial (R). 2+ Radial (L). 2+ Pedal (R). 2+ Pedal (L) Abdominal Exam: Normal bowel sounds. Soft. Nontender. No hepatospenomegaly. No masses Ankle Exam: Negative ankle edema Lower extremities: Negative lower extremity edema Neuro/Mental Status: A&O x3. Coherent Appearance: Severe acute distress Skin Exam: Normal inspection. Normal color. Warm. Dry Diagnoses Non ST-elevation myocardial infarction rule out coronary artery disease Diffuse multiple coronary vessels diease (CAD) Monomorphic ventricular tachycardia status post synchronized DC cardioversion Hx of nonischemic cardiomyopathy status post AICD (medtronic, 2018) Acute on chronic decompensated HFrecEF, latest EF 30% Paroxysmal atrial fibrillation, on Eliquis and amiodarone Anemia in chronic disease Hypertension ESRD on HD Case and plan discussed discussed with DR. Nava and the cardiology team. We agree with agreement with the transfer to a higher level of care. Consults/Reason for consult Reason for Consultation NSTEMI, AICD Operations or Procedures Operative Report -Cardiology Report Details Date: 01/26/24 Preop Diagnosis: Non ST-elevation myocardial infarction complicated by recurrent ventricular tachycardia Postop Diagnosis: Coronary angiography revealed the ostial left main of 75%. Proximal LAD at 85% involving mid segment of 85% and ostial diagonal branches 75-80% with a long tubular lesion to the diagonal 90%. There is subtotal occlusion of the left circumflex system. The 1st obtuse marginal branch has distal disease and 90%. In the right coronary artery is chronically occluded in the proximal segment. Finding is suggestive of three-vessel disease involving left main. IVUS interrogation confirmed minimal luminal area of 6 centimeters squared to the left main with a minimal diameter of 1.9 and maximum diameter of 3.7 mm. Also the LAD is significantly diseased with a minimal luminal area of less than 3 cm squares. Given history of V-tach I would recommend coronary artery bypass graft surgery in high-level care facility. Surgeon: Veronika Rowley MD Anesthesiologist: Conscious sedation using25 mcg of fentanyl as well as a mg IV midazolam. It was given under the direct supervision of the primary inspector balance truing myself in the presence of the attending nurses. Patient was monitored for total of 40 minutes without obvious complication. Anesthesia: Local Consent: The patient was informed of the risks and benefits of the procedure. These include but are not limited to complications of anesthesia, postoperative infection, incomplete relief of symptoms, recurrence of symptoms, damage to blood vessels, nerves and tendons, deep venous thrombosis, pulmonary embolism and possible need for repeat surgery in the future. Indications for Surgery: This is a 63-year-old man who presented to the emergency room via EMS with a chief complaint of shortness of breath for one week. At time of assessment, the patient was found severely lethargic and sustaining a sinus tachycardia rhythm in the 150s bpm. Information obtained from at bedside, somewhat poor historian, who states the patient developed progressive shortness of breath associated with generalized weakness missing his hemodialysis treatment this past Friday but attending on Friday. Denies chest pain, palpitations, or syncopal events. During admission in the emergency room the patient transitioned into a ventricular tachycardia rhythm with pulse undergoing synchronized DC cardioversion with shock delivered at 100 joules by ED staff. Cardiology consulted STAT given change in hemodynamics, tachyarrhythmia, and elevated troponin levels. Follows up with primary inspector balance truing at [facility] with upcoming appointment on 01/1924. Per , he was recently Rx Viagra. Significant medical history includes nonischemic cardiomyopathy status post dual-chamber AICD (Medtronic) implanted at [facility] in 2018, paroxysmal atrial fibrillation on Eliquis and amiodarone, hypertension, COPD, end-stage renal disease on hemodialysis , benign prostatic hyperplasia, peripheral neuropathy, and obesity. Name of Procedure Performed 1. Ultrasound-guided right femoral arterial access. 2 Left heart catheterization with left ventricular end-diastolic pressure measurement. 3. Selective right and left coronary angiography utilizing right femoral approach. 4. Conscious sedation using25 mcg of fentanyl as well as a mg of midazolam. 5. Intravascular ultrasound interrogation of the left main and left anterior descending artery indicating high level stenosis and left main with a minimal lumen area of 6 centimeters squared. 6. Vascular closure device application to the right femoral arteriotomy site using six [place] Angio-Seal without difficulty. Procedure Details Procedure Details: Procedure note and vascular access: After informed consent was obtained risks, benefits, complications, and alternatives were discussed in details with the patient who agrees to have the procedure done. At the beginning of the procedure, the right femoral area was prepped and draped in regular sterile fashion. Before total of 10 cc of 1% xylocaine was given locally. Patient also received conscious sedation sedation using25 mcg of fentanyl as well as a mg of midazolam direct supervision of myself. Was monitored for total of45 minutes during the procedure without obvious complication. After confirmation of right femoral arteriotomy site above bifurcation using micropuncture kit the micropuncture kit was exchanged for a six [place] sheath without difficulty using modified Seldinger technique. A preshaped Alexx right as well as Alexx left system were used to engage the right and left coronary system. Finally the Alexx left was exchanged for an XB 3.5 guiding catheter as well as C-arm blue to undergo ultrasound interrogation of the left main and left anterior descending artery findings were as follows: 1. Left heart catheterization with left ventricular end-diastolic pressure measurement: With the help of a [employer] diagnostic catheter as well as [employer] wire were able to cross the aortic valve measured left ventricular end-diastolic pressure which was elevated at 15 mm of mercury. There was no significant gradient across the aortic valve on the pullback. 2. Selective right and left coronary angiography utilizing right femoral arterial access: 1. The right coronary artery comes off the right coronary cusp it is proximally occluded followed by auto collaterals and reconstitutes in the mid segment for short part before it would disappear again with total occlusion distally with a cell collateral from the left system. 2. The left main comes off the left coronary cusp there is an ostial left main disease at 50-60%. 3. The left anterior descending artery is transapical with a type 3 course, it has a proximal disease at 85% involving small diagonal branch. There is a 2nd lesion of 75% of the mid segment with a ostial 75% 2nd diagonal branch with a long tubular lesion in the mid part of the 2nd diagonal branch. The distal LAD has a irregularity with no significant stenosis a good target vessel. 4. The left circumflex system is medium-sized vessels it gives rise to large 1st obtuse marginal branch, the obtuse marginal branch has long tubular lesion at the distal part at 90%. The left circumflex proper is subtotally occluded with collateral from the left system. 3. Intravascular ultrasound interrogation of the left main and left anterior descending artery: With the help of [employer] eye intravascular ultrasound probe with a over the wire advancement of the IVUS we were able to withdraw the device and record the minimal luminal area of the left main which was measured at 6 centimeters squared with a minimal diameter of 1.9 and maximum diameter of 3.2 Mm squared. The LAD has significant stenosis with a minimal luminal area of 3.4 centimeters squared. 4. Vessel occlusion device application using six [place] Angio-Seal: The six [place] sheath was exchanged over the wire for an Angio-Seal six [place] system was applied without difficulty with good hemostasis. Impression and plan: 1. Ostial left main disease likely significant given history of ventricular tachycardia and non ST-elevation myocardial infarction as well as intravascular ultrasound interrogation. 2. Diffuse three-vessel disease involving the chronic total occlusion of the prox right coronary artery, subtotally occluded mid left anterior descending artery, distal obtuse marginal branch disease at 90%, and proximal to mid LAD tandem lesion at 85-75% involving the ostial diagonal with a also mid tubular lesion of the same diagonal branch. Given the nature of the patient the disease he would benefit from vascular revascularization using open heart surgery. 3. Patient would need an echocardiogram to assess left ventricular ejection fraction and proceed with goal-directed therapy. 4. Patient would need to be transferred to higher level of care were other options of surgical revascularization this could be consider. Given history of recurrent VT I would recommend an expedited transfer. Condition Poor [facility] Clinical Frailty Scale [facility] Clinical Frailty Scale: Moderately Frail Dominance Dominance: Right Lesion Lesion Complexity: High/C Disposition 2 VERONIKA ROWLEY MD Jan 26, 2024 12:01 DICTATED BY:VERONIKA ROWLEY MD DICTATED DATE/TIME:01/26/24 1201 ATIENT: AMPARO FROST ACCT: [id number] UNIT: [id number] : 1960 LOC: ER ROOM / BED: / AGE / SEX: 63 / M ADM STATUS: REG ER SERVICE 56 ORDERING PHYSICIAN: MAURICIO JAMES MD PROCEDURE(s): CXRP - CHEST PORTABLE REASON: SOB/CP ORDER NUMBER(s): [id number], ACCESSION NUMBER(s): [id number] EXAM: XY CHEST PORTABLE CLINICAL HISTORY: SOB/CP TECHNIQUE: Single AP view of the chest WID: COMPARISON: XY CHEST PORTABLE on DOS: 03/25/23 FINDINGS: Lines and tubes: There is a left-sided dual lead AICD / pacemaker in place. Chest: Cardiomegaly with pulmonary vascular congestion. Small right pleural effusion with bibasilar opacities. No pneumothorax The osseous structures are grossly intact. IMPRESSION: 1. Cardiomegaly and pulmonary vascular congestion. 2. Small right pleural effusion with bibasilar opacities which could reflect atelectasis or pneumonia. ATED BY: CORTNEY BENAVIDES MD DICTATED DATE/TIME: 01/25/24 5033 Condition at Discharge: Poor Final Diagnosis/Problems List Coronary angiography revealed the ostial left main of 75%. Proximal LADat 85% involving mid segment of 85% and ostial diagonal branches 75-80%with a long tubular lesion to the diagonal 90%. There is subtotalocclusion of the left circumflex system. The 1st obtuse marginal branchhas distal disease and 90%. In the right coronary artery is chronicallyoccluded in the proximal segment. Finding is suggestive of three-vesseldisease involving left main. IVUS interrogation confirmed minimal luminalarea of 6 centimeters squared to the left main with a minimal diameter of1.9 and maximum diameter of 3.7 mm. Also the LAD is significantlydiseased with a minimal luminal area of less than 3 cm squares. Givenhistory of V-tach I would recommend coronary artery bypass graft surgeryin high-level care facility. Discharge Disposition: Acute Care Facility Discharge Instruct/Medications Diet: Cardiac 2g Na,low cholest Activity: See Comment Medications: Amiodarone Heparine Discharge Statement: "Patient was advised to return to the ER or call 911 if any headaches, dizziness, shortness of breath, chest pain, abdominal pain, bleeding, fevers, or worsening of medical condition. Patient was counseled about treatment plan, medications, possible side effects, patientverbalized understanding. All questions were answered to the best of my ability. This discharge took greater then 30 minutes in planning, reviewing documentation, counseling the patient, and discussing with other team members." ASSESSMENT ASSESSMENT Assessment Coronary angiography revealed the ostial left main of 75%. Proximal LADat 85% involving mid segment of 85% and ostial diagonal branches 75-80%with a long tubular lesion to the diagonal 90%. There is subtotalocclusion of the left circumflex system. The 1st obtuse marginal branchhas distal disease and 90%. In the right coronary artery is chronicallyoccluded in the proximal segment. Finding is suggestive of three-vesseldisease involving left main. IVUS interrogation confirmed minimal luminalarea of 6 centimeters squared to the left main with a minimal diameter of1.9 and maximum diameter of 3.7 mm. Also the LAD is significantlydiseased with a minimal luminal area of less than 3 cm squares. Givenhistory of V-tach I would recommend coronary artery bypass graft surgeryin high-level care facility. Date of Service: Jan 26, 2024 Billing Provider: WILFRED MCDANIELS MD Common Visit Codes: 23640-LRE/OBS DISCH DAY >30min MAGDI HERNÁNDEZ RESIDENT Jan 26, 2024 19:53 WILFRED MCDANIELS MD Jan 28, 2024 10:28
[2024-01-26] MEDS ORDERED: ATROPINE SULF 1 MG/10ml SYR IV ONE (20:38)
[2024-01-26] MEDS ORDERED: ATORVASTATIN 20 MG TAB PO SCH (22:00)
[2024-01-26] MEDS: ATORVASTATIN 20 MG TAB PO SCH (22:00)
[2024-01-26] MEDS: LORazepam 2MG/ML-1ML VIAL IV ONE (22:25)
[2024-01-27] VITALS (85 sets, daily range): BP systolic 92–176; BP diastolic 31–119; PULSE 79–223; RESP 17–51; TEMP 97.9–98.5; O2SAT 81–100
[2024-01-27] MEDS: HYALURONIDASE 150 UNIT/1 ML SUBCUT ONE
[2024-01-27 00:29] LABS: Basophils # (auto) 0 10 ^3/uL (0-0.2); Basophils % (auto) 0.2 % (0.0-2.0); Eosinophils # (auto) 0 10 ^3/uL (0-0.8); Eosinophils % (auto) 0.1 % (0.0-7.0); Hematocrit 38.7 % (41.0-53.0); Hemoglobin 13.1 g/dL (13.5-17.5); Lymphocytes # (auto) 0.5 10 ^3/uL (0.4-5.4); Lymphocytes % (auto) 8.4 % (10.0-50.0); Mean Corpuscular Hgb Conc. 33.9 g/dL (32.0-36.0); Mean Corpuscular Volume 100.3 fL (80.0-100.0); Monocytes # (auto) 0.2 10 ^3/uL (0-1.3); Monocytes % (auto) 3.1 % (0.0-12.0); Neutrophils # (auto) 4.8 10 ^3/uL (1.6-8.6); Neutrophils % (auto) 88.2 % (37.0-80.0); Nucleated Red Blood Cells % 0.6 %; Platelet Count (auto) 252 10^3/uL (140-450); Red Blood Cells 3.86 10^6/uL (4.5-5.90); Red Cell Distribution Width 15.2 % (11.8-14.3); White Blood Cell 5.5 10^3/uL (4.4-10.8)
[2024-01-27 00:35] LABS: Base Excess -4.5 mmol/L (-2.0-3.0)
[2024-01-27 00:37] LABS: Potassium 4.5 mmol/L (3.5-5.1)
[2024-01-27 00:38] LABS: Anion Gap 19 (5-15); Carbon Dioxide 25 mmol/L (20-31)
[2024-01-27 00:44] LABS: BUN/Creatinine Ratio 5.4 (10.0-20.0); INR 1.07 (0.9-1.15); Magnesium 2.3 mg/dL (1.6-2.6); Partial Thromboplastin Time 28.5 SEC (24.5-34.5); Prothrombin Time 11.3 sec (9.3-11.8)
[2024-01-27 00:46] LABS: Blood Urea Nitrogen 41 mg/dL (9-23); Calcium 10.5 mg/dL (8.7-10.4); Chloride 89 mmol/L (98-107); Glucose 210 mg/dL (74-106); Sodium 133 mmol/L (136-145)
[2024-01-27] MEDS: HEPARIN SODIUM (PORCINE) 5000 UNITS/ML 1ML VIAL ONE (01:19)
[2024-01-27] MEDS: HEPARIN SODIUM (PORCINE) 5000 UNITS/ML 1ML VIAL IV ONE (01:27)
[2024-01-27] MEDS: METOPROLOL TARTRATE 1MG/1ML-5ML VIAL IV ONE (02:01)
[2024-01-27] MEDS: FUROSEMIDE 100 MG/10ML VIAL IV ONE (02:25)
[2024-01-27 02:53] LABS: Urine Amorphous Crystal FEW /hpf (None Seen); Urine Bacteria None Seen /hpf (None Seen); Urine Blood 1+ /uL (Negative); Urine Clarity Turbid (Clear); Urine Color Yellow (Yellow); Urine Protein, UAD 2+ (Negative); Urine Specific Gravity 1.022 (1.001-1.035); Urine Urobilinogen Normal (Negative); Urine WBC 3 /hpf (0 - 3); Urine pH 5.5 (5.0-9.0)
[2024-01-27 03:12] LABS: Amphetamine Screen, Urine Neg (NEGATIVE); Barbiturate Scree,Urine Neg (NEGATIVE); Benzodiazephine Screen, Urine Neg (NEGATIVE); Cannabinoid Screen, Urine Pos (NEGATIVE); Cocaine Screen, Urine Neg (NEGATIVE); Opiate Scree,Urine Neg (NEGATIVE); Phencyclidine Screen, Urine Neg (NEGATIVE)
[2024-01-27 03:59] LABS: Hematocrit 36.1 % (41.0-53.0); Mean Corpuscular Hemoglobin 33.8 pg (28.0-32.0); Mean Corpuscular Hgb Conc. 33.3 g/dL (32.0-36.0); Mean Corpuscular Volume 101.5 fL (80.0-100.0); Platelet Count (auto) 202 10^3/uL (140-450); Red Blood Cells 3.56 10^6/uL (4.5-5.90); Red Cell Distribution Width 15.3 % (11.8-14.3); White Blood Cell 4.6 10^3/uL (4.4-10.8)
[2024-01-27 04:03] LABS: Basophils % (manual) 0 (0.0-2.0); Blast Cells 0; Eosinophils % (manual) 0 (0-7); Metamyelocytes % 0; Myelocytes % 0; Promyelocytes % 0; Reactive Lymphocytes 0
[2024-01-27 04:33] LABS: Alanine Aminotransferase 25 U/L (7-40); Alkaline Phosphatase 107 U/L (46-116); Anion Gap 19 (5-15); Aspartate Aminotransferase 21 U/L (13-40); BUN/Creatinine Ratio 6.6 (10.0-20.0); Calcium 9.8 mg/dL (8.7-10.4); Carbon Dioxide 24 mmol/L (20-31); Magnesium 2.3 mg/dL (1.6-2.6)
[2024-01-27 04:34] LABS: Bilirubin, Total 0.6 mg/dL (0.2-1.0); Blood Urea Nitrogen 53 mg/dL (9-23); Chloride 91 mmol/L (98-107); Glucose 233 mg/dL (74-106); Potassium 5.2 mmol/L (3.5-5.1); Sodium 134 mmol/L (136-145); Total Protein 6.2 g/dL (5.7-8.2)
[2024-01-27] MEDS: HEPARIN DRIP/D5W 100UNITS/ML 250 ML IV SCH (05:23)
[2024-01-27] MEDS: FUROSEMIDE 40 MG/4 ML VIAL IV SCH (05:59)
[2024-01-27 06:30] LABS: Band Neutrophils % (manual) 3; Lymphocytes % (manual) 5 (10.0-50.0); Monocytes % (manual) 4 (0-12)
[2024-01-27 06:31] LABS: Macrocytosis Slight; Platelet Estimate Adequate
[2024-01-27] MEDS: AMIODARONE 450mg/250ml AE 250 ML IV SCH (06:45)
--- NOTE | 2024-01-27 06:52 | DVHPN2 ---
Progress Note - Dictate Date Seen: Jan 27, 2024 Medical Necessity Reason Pt with a Central, PICC or Fol: No Subjective Started on Amio drip last night CXR with congestion . vital signs Vital Sign Date Time Temp Pulse Resp B/P (MAP) Pulse Ox O2 Delivery O2 Flow Rate FiO2 01/27/24 06:00 26 92 Oxymizer 10 N/A 01/27/24 05:59 127/54 01/27/24 02:01 144 01/27/24 00:00 97.9 97.9 Total Intake and Output 01/26/24 01/26/24 01/27/24 15:00 23:00 07:00 Intake Total 406.653 ml 381.49 ml 194.2 ml Output Total 60 ml Balance 406.653 ml 381.49 ml 134.2 ml medications Current Medications Medications Dose Ordered Sig/Estelle Route Start Time Stop Time Status Last Admin Dose Admin Docusate Sodium 100 mg BIDPRN PRN PO 01/26/24 00:45 Acetaminophen 650 mg Q6HP PRN PO 01/26/24 00:45 Morphine Sulfate 2 mg Q4HPRN PRN IV 01/26/24 00:45 Nitroglycerin 0.4 mg Q5MINP PRN SL 01/26/24 00:45 Morphine Sulfate 2 mg Q30M PRN IV 01/26/24 00:45 Hydralazine HCl 10 mg Q6HP PRN IV 01/26/24 01:45 Pantoprazole Sodium 40 mg DAILY IV 01/26/24 10:00 01/26/24 14:01 40 MG Ipratropium Guston 0.5 mg Q6HPRN PRN NEB 01/26/24 02:00 Atorvastatin Calcium 80 mg HS PO 01/26/24 22:00 Tamsulosin HCl 0.4 mg DAILY PO 01/26/24 10:00 Albuterol 2.5 mg Q6HPRN PRN NEB 01/26/24 02:00 Methylprednisolone Sodium Succinate 40 mg BID IV 01/26/24 10:00 01/26/24 21:53 40 MG Ampicillin Sodium/ Sulbactam Sodium 3 gm/Sodium Chloride 100 ml @ 100 mls/hr Q24H IV 01/26/24 13:30 Doxycycline Hyclate 250 ml @ 125 mls/hr Q12H IV 01/26/24 18:00 Amiodarone HCl 250 ml @ 0 mls/hr Q0M IV 01/26/24 23:00 01/27/24 06:45 33.3 MLS/HR Heparin Sodium/ Dextrose 250 ml @ 16 mls/hr [id number] IV 01/27/24 01:30 01/27/24 05:23 16 MLS/HR Furosemide 40 mg BIDD IV 01/27/24 06:00 01/27/24 05:59 40 MG objective Awake and alert HEENT: Normocephalic, no JVD Lungs: Bibasilar rales CVS: S1, S2 regular rate rhythm Abdomen: Soft, bowel sounds present PERFORMANCE IMPROVEMENT MANAGER: No focal deficits Extremities: Edema present laboratory and microbiology Laboratory Tests 01/27/24 03:19 Test 01/27/24 03:19 Range/Units Serum Glucose 233 H 74-106 mg/dL Problem List End-stage kidney disease on hemodialysis Non ST-elevation VT status post left heart catheterization showing multivessel disease ventricular tachycardia status post cardioversion History of AICD placement Acute on chronic diastolic heart failure Paroxysmal atrial fibrillation Hypotension Obesity Anemia in Chronic kidney disease Assessment/Plan CXR with congestion . Would benefit from another session of HD today But patient is refusing . Bumex 2 mg IV bid To be transferred to higher level of care. Next HD on Fri Plan discussed with: Patient HIREN FELIX MD Jan 27, 2024 06:52
--- NOTE | 2024-01-27 07:45 | DVH ---
CLINICAL INFORMATION: 63 years old, Male; shortness of breath. TECHNIQUE: Single AP portable chest radiograph was obtained. COMPARISON: XY CHEST PORTABLE on DOS: 01/25/24, XY CHEST PORTABLE on DOS: 03/25/23 FINDINGS: Likely small right pleural effusion with overlying atelectasis and/or consolidation, may be slightly improved compared to the prior exam. Ill-defined bilateral airspace opacities minimally changed delfina red to the prior exam. No pneumothorax. Grossly stable appearing cardiomegaly. No other significant interval change. IMPRESSION: 1. Right pleural effusion with overlying atelectasis and/or consolidation may be slightly improved co mpared to the prior exam. 2. No other significant interval change as detailed above.
[2024-01-27] MEDS ORDERED: DEXTROSE (50%) 50ML SYRG IV PRN (08:15)
[2024-01-27 08:39] LABS: Lactic Acid w/Reflex 3.3 mmol/L (0.4-2.0)
[2024-01-27] MEDS: MIDAZOLAM HCL 2MG/2ML 2ml VIAL (1mg/ml) IV ONE (09:00)
[2024-01-27 09:03] LABS: INR 1.15 (0.9-1.15); Partial Thromboplastin Time 64.8 SEC (24.5-34.5); Prothrombin Time 12.1 sec (9.3-11.8)
[2024-01-27] MEDS: fentaNYL CITRATE 100 MCG/2 ML VL IV ONE ×2 (09:15→18:30)
--- NOTE | 2024-01-27 09:37 | DVHPN2 ---
Consult Progress Note Date Seen: Jan 27, 2024 Subjective Other Systems: Denies any cardiac symptoms Objective vital signs Vital Sign Date Time Temp Pulse Resp B/P (MAP) Pulse Ox O2 Delivery O2 Flow Rate FiO2 01/27/24 07:00 133 28 119/68 (85) 94 01/27/24 06:00 Oxymizer 10 N/A 01/27/24 04:00 97.9 97.9 Total Intake and Output 01/26/24 01/26/24 01/27/24 15:00 23:00 07:00 Intake Total 406.653 ml 381.49 ml 342.1 ml Output Total 60 ml Balance 406.653 ml 381.49 ml 282.1 ml medications Current Medications Medications Dose Ordered Sig/Estelle Route Start Time Stop Time Status Last Admin Dose Admin Docusate Sodium 100 mg BIDPRN PRN PO 01/26/24 00:45 Acetaminophen 650 mg Q6HP PRN PO 01/26/24 00:45 Morphine Sulfate 2 mg Q4HPRN PRN IV 01/26/24 00:45 Nitroglycerin 0.4 mg Q5MINP PRN SL 01/26/24 00:45 Morphine Sulfate 2 mg Q30M PRN IV 01/26/24 00:45 Hydralazine HCl 10 mg Q6HP PRN IV 01/26/24 01:45 Pantoprazole Sodium 40 mg DAILY IV 01/26/24 10:00 01/26/24 14:01 40 MG Atorvastatin Calcium 80 mg HS PO 01/26/24 22:00 Tamsulosin HCl 0.4 mg DAILY PO 01/26/24 10:00 Ampicillin Sodium/ Sulbactam Sodium 3 gm/Sodium Chloride 100 ml @ 100 mls/hr Q24H IV 01/26/24 13:30 Doxycycline Hyclate 250 ml @ 125 mls/hr Q12H IV 01/26/24 18:00 Amiodarone HCl 250 ml @ 0 mls/hr Q0M IV 01/26/24 23:00 01/27/24 06:45 33.3 MLS/HR Heparin Sodium/ Dextrose 250 ml @ 16 mls/hr [id number] IV 01/27/24 01:30 01/27/24 05:23 16 MLS/HR Bumetanide 2 mg BID IV 01/27/24 10:00 Diagnostic Test (Pha) 1 strip Q6HR 01/27/24 12:00 Insulin Human Regular Q6HR SC 01/27/24 12:00 Dextrose 50 ml UD PRN IV 01/27/24 08:15 Ipratropium [place] 0.5 mg Q4HWA NEB 01/27/24 10:00 Methylprednisolone Sodium Succinate 40 mg DAILY IV 01/27/24 10:00 Levalbuterol HCl 0.625 mg Q4HWA NEB 01/27/24 10:00 Examination: GENERAL:Abnormal (Lethargic), LUNGS:Abnormal (Diminished), CVS:Abnormal (Sustained v-tach events ), NEURO:Normal laboratory and microbiology Laboratory Tests 01/27/24 03:19 Test 01/27/24 03:19 Range/Units Serum Glucose 233 H 74-106 mg/dL Problem List/Assessment/Plan Problem List/Assessment/Plan Non ST-elevation myocardial infarction with multivessel disease including ostial left main disease Monomorphic ventricular tachycardia status post multiple synchronized DC cardioversions Hx of nonischemic cardiomyopathy status post AICD (medtronic, 2018) 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 Rowley) Discussed case with Dr. Rowley. Transfer to [facility] for CABG evaluation. In the meantime, continue amiodarone drip per pharmacy protocol as well as heparin drip. Initiate metoprolol XL and metoprolol IV PRN. Monitor ECG changes closely and notify. We strongly recommend urgent hemodialysis at this time. Thank you for allowing us to participate in this patient's care. Please call if you have any questions or concerns. Critical care time: 50 min. This medical document was created using an electronic medical record system with voice recognition software and computerized dictation system. Although this document has been carefully reviewed, there might still be some phonetic and typographical errors. Occasional wrong-word or ``sound-alike substitutions may have occurred due to the inherent limitations of voice recognition software. These areas are purely typographical due to imperfections of the software programs and do not reflect any compromise in the patient's medical care. Please read the chart carefully and recognize, using context, where these substitutions have occurred. 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
--- NOTE | 2024-01-27 09:45 | DVHNC2 ---
Cardioversion Vagal maneuver: Were not attempted Attempts: x3, Joules Resulted Rhythm: NSR Direct Supervision: Yes Informed consent obtained: Yes Risks/benefits/alt described: Yes Notes Procedure completed at 0915, 0924, and 0940. Performed synchronized DC cardioversion x 3 times. Indication unstable monomorphic ventricular tachycardia with severe respiratory distress and increased lethargy. Sedated with versed 1 mg and fentanyl 25 mcg. Synchronized DC cardioversion completed with 100 joules x 2 and 50 joules x 1. Successful transition from a ventricular tachycardia rhythm to a sinus rhythm. He is currently on an amiodarone drip per pharmacy protocol. Central line currently being placed at bedside by primary care team. Heparin drip for NSTEMI not infused given limited IV access. Plan is to continue urgent hemodialysis and transfer to [facility] for CABG. Date of Service: Jan 27, 2024 Billing Provider: KAYDEN ROWLEY MD Cardiology Common Codes: PROCEDURE ONLY Cardiology Procedure Codes: 76167-GE CARDIOVERSION FEMI PRABHAKAR Jan 27, 2024 09:45
[2024-01-27] MEDS ORDERED: LEVALBUTEROL HCL 1.25 MG/3 ML NEB NEB SCH (10:00)
[2024-01-27] MEDS ORDERED: IPRATROPIUM BROM 0.5 MG/2.5ML INH SOL NEB SCH (10:00)
[2024-01-27] MEDS: methylPREDNISolone SOD SUCC 40 MG/ML VL IV SCH (10:31)
[2024-01-27] MEDS: BUMETANIDE 2.5mg/10ml (0.25 mg/ml) INJ IV SCH (10:31)
[2024-01-27] MEDS: METOPROLOL SUCCINATE XL 50 MG TAB PO SCH (10:32)
[2024-01-27] MEDS: METOPROLOL TARTRATE 1MG/1ML-5ML VIAL IV PRN (10:52)
[2024-01-27] MEDS: LIDOCAINE 50MG/5ML INJ 5ML SYRINGE IV ONE (11:56)
[2024-01-27] MEDS: ACCU-CHEK COMFORT CURVE STRIP VI SCH (12:00)
[2024-01-27] MEDS: InsuLIN REG 1unit/0.01ml Soln (100units/ml) SC SCH (12:00)
--- NOTE | 2024-01-27 12:02 | DVH ---
ULTRASOUND ABDOMEN LIMITED INDICATION: ascitis, fluid check TECHNIQUE: Ultrasound of the 4 quadrants of the abdominal cavity. COMPARISON: None FINDINGS: There is no ascites identified in all 4 quadrants of the abdominal cavity. IMPRESSION: 1. There is no ascites identified in the 4 quadrants of the abdomen. HS:Y
[2024-01-27 14:47] LABS: INR 1.13 (0.9-1.15); Partial Thromboplastin Time 47.9 SEC (24.5-34.5); Prothrombin Time 11.9 sec (9.3-11.8)
--- NOTE | 2024-01-27 14:49 | DVHPNRES ---
Progress Note Date Seen: Jan 27, 2024 Resident Creating Document: NAOMY RODRIGUEZ RESIDENT Medical Necessity Reason Pt with a Central, PICC or Fol: No Subjective Review of Systems Patient was seen and examined at bedside. He is currently in distress due to shortness of breath, she is alert and oriented x3, denies any significant chest pain, lightheadedness, dizziness. Patient is currently on Oxymizer at 12 L, heart rate has been fluctuating up to the 150s, patient has been cardioverted multiple times within the morning, at least 5 times because he was undergoing ventricular tachycardia, he also remains on amiodarone drip and were given pushes of lidocaine and metoprolol IV. His respiratory rate has been fluctuating from the 20s to 30s, both lungs have coarse crackles, he will undergo hemodialysis today. A femoral central triple-lumen line was placed on the right side, no complications noted, patient is currently receiving Unasyn and doxycycline. Were actually looking for transfer to higher level of care to multiple facilities, as patient requires CABG procedure due to triple-vessel disease. Patient has a poor prognosis. Goals of care has been discussed, full code. Objective vital signs Vital Sign Date Time Temp Pulse Resp B/P (MAP) Pulse Ox O2 Delivery O2 Flow Rate FiO2 01/27/24 14:04 23 92 Oxymizer 10 N/A 01/27/24 12:32 135 142/60 01/27/24 11:30 98.1 98.1 Total Intake and Output 01/26/24 01/26/24 01/27/24 15:00 23:00 07:00 Intake Total 406.653 ml 381.49 ml 391.43 ml Output Total 60 ml Balance 406.653 ml 381.49 ml 331.43 ml medications Current Medications Medications Dose Ordered Sig/Estelle Route Start Time Stop Time Status Last Admin Dose Admin Docusate Sodium 100 mg BIDPRN PRN PO 01/26/24 00:45 Acetaminophen 650 mg Q6HP PRN PO 01/26/24 00:45 Morphine Sulfate 2 mg Q4HPRN PRN IV 01/26/24 00:45 Nitroglycerin 0.4 mg Q5MINP PRN SL 01/26/24 00:45 Morphine Sulfate 2 mg Q30M PRN IV 01/26/24 00:45 Hydralazine HCl 10 mg Q6HP PRN IV 01/26/24 01:45 Pantoprazole Sodium 40 mg DAILY IV 01/26/24 10:00 01/27/24 10:00 40 MG Atorvastatin Calcium 80 mg HS PO 01/26/24 22:00 Tamsulosin HCl 0.4 mg DAILY PO 01/26/24 10:00 Ampicillin Sodium/ Sulbactam Sodium 3 gm/Sodium Chloride 100 ml @ 100 mls/hr Q24H IV 01/26/24 13:30 01/27/24 13:30 100 MLS/HR Doxycycline Hyclate 250 ml @ 125 mls/hr Q12H IV 01/26/24 18:00 Amiodarone HCl 250 ml @ 0 mls/hr Q0M IV 01/26/24 23:00 01/27/24 14:18 1 MLS/HR Heparin Sodium/ Dextrose 250 ml @ 16 mls/hr [id number] IV 01/27/24 01:30 01/27/24 05:23 16 MLS/HR Bumetanide 2 mg BID IV 01/27/24 10:00 01/27/24 10:31 2 MG Diagnostic Test (Pha) 1 strip Q6HR 01/27/24 12:00 01/27/24 12:00 1 STRIP Insulin Human Regular Q6HR SC 01/27/24 12:00 01/27/24 12:00 4 UNITS Dextrose 50 ml UD PRN IV 01/27/24 08:15 Ipratropium [place] 0.5 mg Q4HWA [facility] 01/27/24 10:00 Methylprednisolone Sodium Succinate 40 mg DAILY IV 01/27/24 10:00 01/27/24 10:31 40 MG Levalbuterol HCl 0.625 mg Q4HWA [facility] 01/27/24 10:00 Metoprolol Succinate 25 mg DAILY PO 01/27/24 10:00 01/27/24 10:32 25 MG Metoprolol Tartrate 1.25 mg Q6HPRN PRN IV 01/27/24 10:00 01/27/24 10:52 1.25 MG Examination General: Awake, alert, in mild to moderate distress due to shortness of breath. HEENT: Head is normocephalic and atraumatic. Pupils are equal, round, and reactive to light. Extraocular muscles are intact. No nasal discharge. No facial trauma. Intraoral exam shows moist mucous membranes with no tonsillar enlargement or exudate. Neck: Supple with no cervical lymphadenopathy No meningismus. No goiter. Heart: Fluctuating tachycardia, irregular Lungs: Bilateral coarse crackles and scattered wheezing Abdomen: No external sign of injury. Bowel sounds are present. Abdomen is soft, nontender. No rebound, no guarding, no rigidity. There are no palpable masses. Distended abdomen Extremities: Strong peripheral pulses. There is no clubbing, no cyanosis, and no edema. Skin: No rash. Neurologic: Cranial nerves II-XII intact without motor, sensory, or cerebellar deficit, no asterixis. laboratory and microbiology Laboratory Tests 01/27/24 03:19 Test 01/27/24 03:19 Range/Units Serum Glucose 233 H 74-106 mg/dL Microbiology Date/Time Source Procedure Growth Status 01/26/24 02:22 Blood Blood Culture - Preliminary NO GROWTH AFTER 24 HOURS OF INCUBATION. Resulted Labs and/or images reviewed: Labs reviewed by me, Image(s) reviewed by me Problem List/Assessment/Plan Problem List/Assessment/Plan Neurology x Cardiovascular #Non ST-elevation myocardial infarction with Diffuse multiple coronary vessels disease #Monomorphic ventricular tachycardia status post synchronized DC cardioversion #Hx of nonischemic cardiomyopathy status post AICD #Acute on chronic decompensated HFrEF, latest EF 30% #Paroxysmal atrial fibrillation, on Eliquis and amiodarone #H/o Hypertension Patient got cardioverted 5 times today 01/27/2024 Cardiology is following Continue amiodarone drip Metoprolol 1.25 mg IV q.6 p.r.n. Metoprolol succinate 25 mg p.o. q.d. Continue hemodialysis as needed Continue Bumex 2 mg IV b.i.d. Continue Heparin drip Pulmonology #Acute on chronic hypoxic respiratory failure #COPD exacerbation #Pneumonia Gram-positive versus Gram-negative, versus atypical Continue Unasyn IV and doxycycline IV Continue Solu-Medrol 40 mg IV q.d. Maintain oxygen saturation between 88-92%, titrate down Oxymizer Continue DuoNebs q.6 hours Nephrology #ESRD on HD Nephrology is following, continue hemodialysis as needed Urology #BPH Schultz catheter Endocrinology x Gastroenterology PUD ppx Protonix 40 mg IV q.d. Nutrition: Clear liquid diet Hematology and Oncology #Anemia of chronic disease Infectious Disease #Pneumonia Gram-positive versus Gram-negative, versus atypical Continue Unasyn IV and doxycycline IV Dermatology x DVT ppx Heparin drip PUD ppx Protonix 40 mg IV q.d. 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 Full code Case was discussed with Dr. Nava Plan discussed with: Patient, Other (RN) My Orders My Orders Orders - NAOMY RODRIGUEZ RESIDENT Procedure Category Date Status Time Chest Portable XY 01/27/24 Resulted 04:00 Urine Bacterial JUDIE 01/26/24 In Process Culture 19:15 Glucose Blood PHA 01/27/24 In Process (Accu-Chek Comfort 12:00 Insulin R (Human) PHA 01/27/24 In Process (Insulin R) 12:00 Dextrose 50% Syringe PHA 01/27/24 In Process 08:15 Ipratropium Medneb PHA 01/27/24 In Process (Atrovent Medneb) 10:00 Methylprednisolone PHA 01/27/24 In Process Sod Succ (Solu Medrol 10:00 Levalbuterol Hcl PHA 01/27/24 In Process (Xopenex Medneb) 10:00 Abg W/ Co-Ox RT 01/27/24 Logged 10:23 Abdomen Limited US 01/27/24 Resulted 10:23 Clear Liq Diet DIET 01/27/24 Transmitted Dinner Complete Blood Count LAB 01/28/24 Verified 04:00 Magnesium LAB 01/28/24 Verified 04:00 Chest Portable XY 01/28/24 Verified 04:00 Abg W/ Co-Ox RT 01/28/24 Verified 04:00 Lactic Acid W/ Reflex LAB 01/28/24 Verified Order 04:00 Date of Service: Jan 27, 2024 Billing Provider: WILFRED MCDANIELS MD Common Visit Codes: [id number] INP/OBS CARE(HIGH) NAOMY RODRIGUEZ RESIDENT Jan 27, 2024 14:49 WILFRED MCDANIELS MD Jan 28, 2024 10:07
[2024-01-27] MEDS: BUMETANIDE INJECTION 12.5 MG in GIVE UN-DILUTED 0 ML IV SCH (15:45)
[2024-01-27] MEDS ORDERED: fentaNYL CITRATE 100 MCG/2 ML VL IV ONE (17:45)
[2024-01-27] MEDS ORDERED: fentaNYL CITRATE 100 MCG/2 ML VL IM ONE (17:45)
[2024-01-28] MEDS ORDERED: SODIUM CHL 0.9% 1000 ML BAG XX ONE (07:00)
[2024-01-28] MEDS ORDERED: EPOETIN ALFA-EPBX 4,000 UNIT/ML VIAL SC ONE (21:00)
== END 2024-01-27 19:00 | disposition short-term general hospital (02) | DRG 280 ==
LOC: EDUNIT# 21:17 → EDBD 21:17 → ER 21:17 → TELE 01-26 00:43 → ER 01-26 01:11 → ICU WEST 01-26 15:40
PROVIDERS: ADMIT Student in an Organized Health Care Education/Training Program; ATTEND Emergency Medicine
PROC: 5A09357 Assistance with Respiratory Ventilation, Less than 24 Consecutive Hours, Continuous Positive Airway Pressure (ICD-10-PCS; 2024-01-25)
PROC: B2111ZZ Fluoroscopy of Multiple Coronary Arteries using Low Osmolar Contrast (ICD-10-PCS; principal; 2024-01-26)
PROC: 4A023N7 Measurement of Cardiac Sampling and Pressure, Left Heart, Percutaneous Approach (ICD-10-PCS; 2024-01-26)
PROC: B241ZZ3 Ultrasonography of Multiple Coronary Arteries, Intravascular (ICD-10-PCS; 2024-01-26)
PROC: B44FZZZ Ultrasonography of Right Lower Extremity Arteries (ICD-10-PCS; 2024-01-26)
PROC: 5A2204Z Restoration of Cardiac Rhythm, Single (ICD-10-PCS; 2024-01-26)
PROC: 5A09357 Assistance with Respiratory Ventilation, Less than 24 Consecutive Hours, Continuous Positive Airway Pressure (ICD-10-PCS; 2024-01-26)
PROC: 5A1D70Z Performance of Urinary Filtration, Intermittent, Less than 6 Hours Per Day (ICD-10-PCS; 2024-01-26)
PROC: 5A2204Z Restoration of Cardiac Rhythm, Single (ICD-10-PCS; 2024-01-27)
PROC: 5A09357 Assistance with Respiratory Ventilation, Less than 24 Consecutive Hours, Continuous Positive Airway Pressure (ICD-10-PCS; 2024-01-27)
PROC: 5A1D70Z Performance of Urinary Filtration, Intermittent, Less than 6 Hours Per Day (ICD-10-PCS; 2024-01-27)
DX: I21.4 Non-ST elevation (NSTEMI) myocardial infarction (principal); I50.23 Acute on chronic systolic (congestive) heart failure; J96.21 Acute and chronic respiratory failure with hypoxia; N18.6 End stage renal disease; J15.69 Pneumonia due to other Gram-negative bacteria; J15.9 Unspecified bacterial pneumonia; J44.1 Chronic obstructive pulmonary disease with (acute) exacerbation; E87.1 Hypo-osmolality and hyponatremia; I42.8 Other cardiomyopathies; I47.20 Ventricular tachycardia, unspecified; I13.2 Hypertensive heart and chronic kidney disease with heart failure and with stage 5 chronic kidney disease, or end stage renal disease; J44.0 Chronic obstructive pulmonary disease with (acute) lower respiratory infection; I25.10 Atherosclerotic heart disease of native coronary artery without angina pectoris; Z20.822 Contact with and (suspected) exposure to COVID-19; E78.5 Hyperlipidemia, unspecified; N40.0 Benign prostatic hyperplasia without lower urinary tract symptoms; I48.0 Paroxysmal atrial fibrillation; G62.9 Polyneuropathy, unspecified; E66.9 Obesity, unspecified; D63.1 Anemia in chronic kidney disease; I25.2 Old myocardial infarction; Z79.2 Long term (current) use of antibiotics; Z79.899 Other long term (current) drug therapy; Z95.810 Presence of automatic (implantable) cardiac defibrillator; Z79.01 Long term (current) use of anticoagulants; Z80.0 Family history of malignant neoplasm of digestive organs; Z68.26 Body mass index [BMI] 26.0-26.9, adult; Z86.79 Personal history of other diseases of the circulatory system; Z99.2 Dependence on renal dialysis
CPT/HCPCS: 36415; 36600; 71045; 76705; 80048; 80053; 80307; 80320; 81001; 82805; 82962; 83605; 83735; 83880; 84439; 84443; 84481; 84484; 85007; 85025; 85027; 85610; 85730; 87040; 87077; 87081; 87086; 87186; 87340; 87426; 87804; 90935; 92960; 93005; 93306; 93458; 94660; 96374; 96375; 99152; 99291; C1894; G0378; J0153; J2250; J2470; J3470; J3490; Q9967